=== PATIENT | female | born 1960 | race Caucasian/White ===

== ENCOUNTER 2019-04-03 14:54 | Emergency (ER) | payer OTHER, SELFPAY ==
[2019-04-03] VITALS (18 sets, daily range): BP systolic 108–153; BP diastolic 53–80; PULSE 77–92; RESP 15–28; TEMP 36.6–38.2; O2SAT 93–100
--- NOTE | ~2019-04-03 | CT_ITS ---
EXAMINATION: CT abdomen pelvis w con DATE: 04/03/2019 20:11 INDICATION: Right abdominal pain TECHNIQUE: Computed tomography (CT) of the abdomen and pelvis was performed without intravenous contr ast. The dose-length product was 1144.80 mGy-cm. Automated exposure control and iterative reconstruct ion technique were employed. COMPARISON: CT dated 08/08/2018 and MRI dated 05/13/2018 FINDINGS: There is mosaic attenuation in the lung parenchyma. Left lower lobe atelectasis. Heart size normal. There is atherosclerosis of the aorta and coronary arteries. No significant pleural or peric ardial effusion. Status post cholecystectomy with expected prominence of the bile ducts. The liver, spleen, left adren al gland or pancreatic calcifications suggesting chronic pancreatitis. There is a low dose mass in th e left kidney, most likely benign cysts. There is a punctate nonobstructing right renal stone. No hyd ronephrosis. There is a 4.3 x 2.5 cm right adrenal mass without significant interval change, previous ly characterized as adenoma by MRI. Nonobstructive bowel gas pattern. Small fat-containing umbilical hernia. There is irregular soft tiss ue overlying the right psoas muscle with coarse calcifications, possibly phleboliths or calcified lym ph nodes. No lymphadenopathy. No acute osseous abnormality. There is mild-moderate thoracic and lumba r spondylosis. There is a partially visualized intramedullary farhad in the left femur. IMPRESSION: 1. No acute abdominal abnormality. 2: Mosaic attenuation in the visualized lung parenchyma which may relate to respiratory bronchioliti s, small airway disease, edema or infection. 3: Stable 4.3 cm right adrenal adenoma. 4: Status post cholecystectomy with expected prominence of the bile ducts. Reviewed, dictated and finalized at location A. ER FITTER HELPER IMPRESSION: 1. No acute abdominal abnormality. 2: Mosaic attenuation in the visualized lung parenchyma which may relate to re spiratory bronchiolitis, small airway disease, edema or infection. 3: Stable 4.3 cm right adrenal adenoma. 4: Status post cholecystectomy with expected prominence of the bile ducts.
--- NOTE | ~2019-04-03 | XR_ITS ---
EXAMINATION: XR chest 2V DATE: 04/03/2019 15:38 INDICATION: Chest pain. TECHNIQUE: Frontal and lateral views of the chest were obtained. COMPARISON: Chest 2 views 10/28/2018, chest CT 10/28/2018 FINDINGS: There is mild atelectasis in the lower lung zones. No pleural effusion or pneumothorax. Car diomegaly is noted. There are multiple old healed bilateral rib fractures. There are bilateral should er arthroplasties. IMPRESSION: 1. Mild atelectasis in the lower lung zones. 2. Cardiomegaly. Reviewed, dictated and finalized at location A. SSED OR IMPRESSED LETTERING PAINTER
--- NOTE | ~2019-04-03 | XR_ITS ---
XR ankle RT min 3V 04/03/2019 18:21 INDICATION: Right ankle pain after injury PROCEDURE: 4 views right ankle COMPARISON: No prior studies for comparison. FINDINGS: Fracture, dislocation or subluxation is not identified. There is a degenerative calcaneal e nthesophyte. There are mild degenerative changes of the midfoot. The soft tissues appear within janie l limits. No foreign bodies are identified. IMPRESSION: 1: NO ACUTE BONE OR JOINT ABNORMALITY IDENTIFIED. Reviewed, dictated and finalized at location A. HARDENER
--- NOTE | 2019-04-03 14:55 | ECG_ITS ---
Measurements Intervals [place] Rate: 87 P: 35 W[place]: 175 QRS: -33 QRSD: 89 T: 32 QT: 353 QTc: 426 Interpretive Statements SINUS RHYTHM LEFT AXIS DEVIATION BORDERLINE R WAVE PROGRESSION, ANTERIOR LEADS BASELINE ARTIFACT- I, II, AVR BORDERLINE ECG Electronically Signed On 04-03-2019 16:19:39 POOL LIFEGUARD by Oswaldo Fields D.O.
[2019-04-03 15:14] LABS: Basophils Absolute Auto 0.1 K/mm3 (0.0-0.1); Basophils Percent Auto 0.5 % (0.2-1.2); Eosinophils Absolute Auto 0.1 K/mm3 (0-0.3); Eosinophils Percent Auto 0.9 % (0-4.4); Hematocrit 29.4 % (37.0-47.0); Hemoglobin 8.4 g/dL (12.0-15.0); Immature Granulocyte Absolute 0.09 K/mm3 (0.00-0.031); Immature Granulocyte Percent A 0.9 % (0-0.5); Lymphocytes Percent Auto 14.2 % (18.3-44.2); Mean Corpuscular HGB Conc 28.6 g/dl (32-36); Mean Corpuscular Hemoglobin 23.8 pg (26-34); Mean Corpuscular Volume 83.3 fl (80-100); Mean Platelet Volume 10.1 fl (7.4-10.4); Monocytes Absolute Auto 0.6 K/mm3 (0.1-0.6); Monocytes Percent Auto 6.1 % (2.6-8.5); Neutrophils Absolute Auto 7.6 K/mm3 (1.3-6.7); Neutrophils Percent Auto 77.4 % (45.5-73.1); Platelet Count Result 393 k/mm3 (150-375); Red Blood Count 3.53 M/mm3 (4.2-5.4); White Blood Count 9.9 K/mm3 (4.5-10.0)
[2019-04-03 15:23] LABS: Platelet Estimate Increased (Adequate)
[2019-04-03 15:24] LABS: Hypochromasia 2+ (NORMAL); INR 0.9; Ovalocytes 1+ (NORMAL); Partial Thromboplastin Time 31.7 SECONDS (22.3-36.8); Prothrombin Time 12.3 Seconds (11.1-14.7); Stomatocytes 1+ (NORMAL)
[2019-04-03 15:26] LABS: Blood Urea Nitrogen 24 mg/dL (7-17); Calcium 9.5 mg/dL (8.4-10.2); Carbon Dioxide 31 mmol/L (22-30); Chloride 100 mmol/L (98-107); Estimated CRCL calculation 74 ml/min; Estimated Glomerular Filt Rate > 60; Glucose 95 mg/dL (65-105); Potassium 4.4 mmol/L (3.4-5.0); Sodium 137 mmol/L (137-145)
[2019-04-03 15:38] LABS: Troponin I < 0.012 ng/mL (0.000-0.034)
--- NOTE | 2019-04-03 16:31 | ED.CHESTPAIN ---
HPI - Chest Pain General Chief Complaint: Chest Pain <Sushil Oconnell MD - Last Filed: 04/03/19 19:21> Stated Complaint: CP <Sushil Oconnell MD - Last Filed: 04/03/19 19:21> Time Seen by Provider: 04/03/19 16:28 <Sushil Oconnell MD - Last Filed: 04/03/19 19:21> Source: patient and RN notes reviewed <Sushil Oconnell MD - Last Filed: 04/03/19 19:21> Mode of arrival: ambulatory <Sushil Oconnell MD - Last Filed: 04/03/19 19:21> Limitations: no limitations <Sushil Oconnell MD - Last Filed: 04/03/19 19:21> History of Present Illness HPI narrative: Pt is a 59 y/o female with a Hx of A-Fib and CHF, who presents to the ED with c/o lt sided chest pain starting yesterday. She notes that she has recently been evaluated for rectal bleeding, stating that she has been diagnosed with anemia and has been scheduled for an endoscopy. Pt also notes that she has recently had bilateral flank pain and hematuria. She states that she developed pain in the lt side of her chest yesterday. Pt notes that her pain may be a result of her constantly upsetting her. She states that she fell yesterday, and notes that she has had pain in her rt ankle ever since. Pt also currently reports generalized weakness. She notes that she is currently trying to quit smoking. <Sushil Oconnell MD - Last Filed: 04/03/19 19:21> MD complaint: chest pain <Sushil Oconnell MD - Last Filed: 04/03/19 19:21> Onset (ago): day(s) (1) <Sushil Oconnell MD - Last Filed: 04/03/19 19:21> Pain location: left chest <Sushil Oconnell MD - Last Filed: 04/03/19 19:21> Pain radiation: none <Sushil Oconnell MD - Last Filed: 04/03/19 19:21> Associated symptoms: other (generalized weakness; hematuria; rectal bleeding; bilateral flank pain; rt ankle pain) <Sushil Oconnell MD - Last Filed: 04/03/19 19:21> Related Data Home Medications: Home Medications Medication Instructions Recorded Confirmed albuterol sulfate 2.5 mg/0.5 mL 2.5 mg INHALATION Q20M 02/13/19 solution for nebulization alendronate 70 mg tablet 70 mg PO WEEKLY 02/13/19 allopurinol 100 mg tablet 100 mg PO DAILY 02/13/19 alprazolam 0.5 mg tablet 1 mg PO DAILY tablet 02/13/19 amiodarone 200 mg tablet 200 mg PO BID tablet 02/13/19 apixaban 5 mg tablet 5 mg PO BID 02/13/19 atorvastatin 20 mg tablet 20 mg PO DAILY 02/13/19 budesonide-formoterol HFA 160 2 puff INHALATION Q12H 02/13/19 mcg-4.5 mcg/actuation aerosol inhaler bupropion HCl 200 mg tablet,12 hr 200 mg PO BID 02/13/19 sustained-release dicyclomine 10 mg capsule 10 mg PO TID 02/13/19 diltiazem HCl 120 mg 120 mg PO DAILY cap 02/13/19 capsule,extended release 12 hr ferrous sulfate 324 mg (65 mg 324 mg PO DAILY 02/13/19 iron) tablet,delayed release furosemide 20 mg tablet 20 mg PO QAM 02/13/19 levothyroxine 112 mcg tablet 112 mcg PO DAILY 02/13/19 magnesium oxide 400 mg PO DAILY 02/13/19 montelukast 10 mg tablet 10 mg PO DAILY 02/13/19 multivitamin 1 cap PO DAILY 02/13/19 omeprazole 40 mg capsule,delayed 40 mg PO DAILY 02/13/19 release paroxetine HCl 30 mg tablet 30 mg PO DAILY 02/13/19 potassium chloride 20 mEq 20 meq PO DAILY 02/13/19 tablet,extended release pregabalin 50 mg capsule 50 mg PO BID 02/13/19 spironolactone 25 mg tablet 25 mg PO DAILY 02/13/19 tiotropium bromide 18 mcg capsule 1 cap INHALATION DAILY 02/13/19 with inhalation device umeclidinium 62.5 mcg/actuation 1 inhalation INHALATION DAILY 02/13/19 blister powder for inhalation valacyclovir 1 gram tablet 1,000 mg PO DAILY 02/13/19 <Sushil Oconnell MD - Last Filed: 04/03/19 19:21> Allergies/Adverse Reactions: Allergies Allergy/AdvReac Type Severity Reaction Status Date / Time codeine Allergy Unknown Verified 03/27/19 10:44 Penicillins Allergy Unknown Verified 03/27/19 10:44 Sulfa (Sulfonamide Allergy Unknown Verified 03/27/19 10:44 Antibiotics) Sulfonamides Allergy Intermediate
[2019-04-03] MEDS: KETOROLAC 30 MG/ML VIAL (*BKC) IV PUSH (17:04)
[2019-04-03 18:14] LABS: Troponin I < 0.012 ng/mL (0.000-0.034)
[2019-04-03] MEDS: MORPHINE SULFATE 4 MG/ML INJ IV PUSH (18:20)
[2019-04-03] MEDS: ONDANSETRON INJ 4 MG/2 ML VIAL IV PUSH (18:20)
--- NOTE | 2019-04-03 19:42 | PC.NURSE ---
Patient called this nurse to her room stated she does not want to wait anymore for the CT scan. This nurse informed patient that a critical patient arrived and needed to go first but they will be in to take her to CT as soon as they can. Patient states she just wants to go home, Patient states I don't want to wait anymore. EDP aware.
--- NOTE | 2019-04-03 20:03 | PC.NURSE ---
Patient taken to radiology.
[2019-04-03 21:33] LABS: Add Urine Microscopic? YES; Appearance Urine Clear (Clear); Bilirubin Urine Negative (Negative); Blood Urine 1+ (Negative); Color Urine Yellow (Yellow); Glucose Urine UA Negative (Negative); Ketones Urine Negative (Negative); Leukocyte Esterase Ur Negative LEU/UL (Negative); Mucus Urine Rare /lpf; Nitrate Urine Negative (Negative); Protein Urine 1+ mg/dL (Negative); Specific Grav Ur 1.016 (1.001-1.035); Squamous Epithelial Cell Urine Occasional /hpf (Few); Urobilinogen Urine Negative mg/dL (<2.0); WBC Urine 0-3 /hpf
[2019-04-03 21:53] LABS: Troponin I < 0.012 ng/mL (0.000-0.034)
[2019-04-03] MEDS: MORPHINE SULFATE 2 MG/ML INJ IV PUSH (21:54)
== END 2019-04-03 23:01 | disposition home or self-care (01) ==
PROVIDERS: Physician Assistant Surgical; Emergency Provider Emergency Medicine
DX: B34.9 Viral infection, unspecified (principal); D50.9 Iron deficiency anemia, unspecified; S93.401A Sprain of unspecified ligament of right ankle, initial encounter; W19.XXXA Unspecified fall, initial encounter; M54.9 Dorsalgia, unspecified; R94.31 Abnormal electrocardiogram [ECG] [EKG]; I50.9 Heart failure, unspecified; J44.9 Chronic obstructive pulmonary disease, unspecified; E78.5 Hyperlipidemia, unspecified; I11.0 Hypertensive heart disease with heart failure; M10.9 Gout, unspecified; E03.9 Hypothyroidism, unspecified; G47.33 Obstructive sleep apnea (adult) (pediatric); I48.0 Paroxysmal atrial fibrillation; Z87.11 Personal history of peptic ulcer disease; Z96.653 Presence of artificial knee joint, bilateral
CPT/HCPCS: 36415; 71046; 73610; 74177; 80048; 81001; 84484; 85025; 85610; 85730; 87804; 93005; 96374; 96375; 96376; 99284; J1885; J2270; J2405; J3360; Q9967

== ENCOUNTER 2019-08-11 08:39 | Outpatient (CLI) | payer OTHER, SELFPAY ==
--- NOTE | ~2019-08-11 | CT_ITS ---
EXAMINATION: CT chest high resolution [facility] EXAM DATE: 08/11/2019 09:08 INDICATION: Chronic obstructive pulmonary disease. TECHNIQUE: Spiral CT of the chest without contrast. HRCT. Axial, coronal and sagittal images were re viewed. Coronal maximum intensity pixel images of chest reviewed. The dose-length product (DLP) for this examination was 333.33 mGy-cm. The exposure was tailored according to patient size (auto mA ex posure control), and iterative reconstruction (ASIR) was used as additional dose reduction technique. Comparison is made to prior examination from 10/28/2018. FINDINGS: Multiple bilateral upper lobe predominant reticulonodular opacities, with progression comp ared to previous examination. Most likely chronic infectious or postinfectious process. There is also scattered mosaic attenuation more pronounced than on previous examination. This is susp ected to be most likely air trapping given the scattered small regions of endobronchial debris identi fied. Differential diagnosis for this includes air trapping (asthma, bronchiolitis obliterans), vasc ulitis, or chronic groundglass opacity from hypersensitivity pneumonitis, nonspecific interstitial pn eumonitis (NSIP), cryptogenic organized pneumonia, or desquamative interstitial pneumonitis(DIP). There are no pleural or pericardial effusions. There is no mediastinal, hilar or axillary lymphaden opathy. There is no pneumothorax. Heart normal in size. There is mild coronary arterial calcifi cation, arterial sclerosis. The main, central pulmonary arteries are dilated which can indicate [place] pulmonary arterial pressure, pulmonary arterial hypertension. Liver is hyperdense, could be, could be amiodarone related finding, hemochromatosis, hemosiderosis. C linical correlation. Multiple old rib fractures bilaterally. There has been interval progression in the reticulonodular opacities and mosaic attenuation compared to previous exam. There is 3.2 cm right adrenal gland lesion likely adenoma. IMPRESSION: 1. Scattered tree-in-bud distribution upper lobe predominant reticular nodular opacities, most often seen with endobronchial spread of chronic infectious process or maybe postinfectious. 2. Scattered mosaic attenuation, could be air trapping given scattered subsegmental endobronchial de bris. 3. Pulmonary arterial hypertension. 4. Mildly hyperdense liver, could be deposition disease or amiodarone treatment. Reviewed, dictated and finalized at location A. IMPRESSION: 1. Scattered tree-in-bud distribution upper lobe predominant reticular nodular opacities, most often seen with endobronchial spread of chronic infectious pro cess or maybe postinfectious. 2. Scattered mosaic attenuation, could be air trapping given scattered subsegm ental endobronchial debris. 3. Pulmonary arterial hypertension. 4. Mildly hyperdense liver, could be deposition disease or amiodarone treatmen t.
== END 2019-08-11 08:40 | disposition home or self-care (01) ==
PROVIDERS: PCP Nurse Practitioner Psychiatric/Mental Health; Visit Provider Internal Medicine Critical Care Medicine
DX: J44.9 Chronic obstructive pulmonary disease, unspecified (principal); R91.8 Other nonspecific abnormal finding of lung field; I27.21 Secondary pulmonary arterial hypertension; R93.2 Abnormal findings on diagnostic imaging of liver and biliary tract
CPT/HCPCS: 71250

== ENCOUNTER 2020-02-17 14:16 | Outpatient (CLI) | payer OTHER, SELFPAY ==
--- NOTE | ~2020-02-17 | CT_ITS ---
EXAMINATION: CT chest wo con DATE: 02/17/2020 14:42 INDICATION: SOB, COUGH R06.02 Shortness of breath TECHNIQUE: Computed tomography (CT) of the chest was performed without intravenous contrast. Addition al 3D reconstructions utilizing coronal maximum intensity projection (MIP) were performed. Automated exposure control and iterative reconstruction technique were employed. The dose-length product was 55 6.52 mGy-cm. COMPARISON: 08/11/2019 FINDINGS: Identical pattern of mosaic attenuation in both lungs most prominent at the lung bases. No interval c hange in several 5 mm smaller pulmonary nodules in the bilateral upper lobes. No pulmonary edema, ple ural effusion or pneumothorax. Cardiomegaly. Atherosclerotic coronary artery calcific locations. No p ericardial or pleural effusion. Thoracic aorta is normal in caliber. Enlargement of the central pulmo nary arteries consistent with pulmonary arterial hypertension. No pathologically enlarged thoracic ly mphadenopathy. Gallbladder is not visualized and likely surgically absent. Bilateral total shoulder a rthroplasties. Relatively recent T2 compression fracture with sclerosis underlying the mildly depress ed superior endplate. Severe degenerative disc disease at T9-T10. IMPRESSION: 1. No interval change in several small pulmonary nodules in the bilateral upper lobes which are most likely related to chronic infection. 2. Unchanged pattern of mosaic attenuation with lower lung predominance. Differential would include s mall airway disease which be consistent with patient's provided history of COPD, pulmonary arterial h ypertension which be suggested by the enlargement of the central pulmonary arteries, desquamative int erstitial pneumonia (DIP) pattern chronic interstitial lung disease with associated respiratory bronc hitis interstitial lung disease which might also explain the previous noted pulmonary nodules. Chroni c hypersensitivity pneumonitis could also appear similarly to be less likely given patient's history of smoking. 3. Cardiomegaly. Reviewed, dictated and finalized at location B. SSIONS CONSULTANT IMPRESSION: 1. No interval change in several small pulmonary nodules in the bilateral upper lobes which are most likely related to chronic infection. 2. Unchanged pattern of mosaic attenuation with lower lung predominance. Differ ential would include small airway disease which be consistent with patient's pr ovided history of COPD, pulmonary arterial hypertension which be suggested by t he enlargement of the central pulmonary arteries, desquamative interstitial pne umonia (DIP) pattern chronic interstitial lung disease with associated respirat ory bronchitis interstitial lung disease which might also explain the previous noted pulmonary nodules. Chronic hypersensitivity pneumonitis could also appear similarly to be less likely given patient's history of smoking. 3. Cardiomegaly.
== END 2020-02-17 14:17 | disposition home or self-care (01) ==
PROVIDERS: PCP Nurse Practitioner Psychiatric/Mental Health; Visit Provider Nurse Practitioner Family
DX: R06.02 Shortness of breath (principal); R05 Cough; R93.89 Abnormal findings on diagnostic imaging of other specified body structures; I51.7 Cardiomegaly; Z87.891 Personal history of nicotine dependence
CPT/HCPCS: 71250

== ENCOUNTER 2022-04-12 07:15 | Outpatient (CLI) | payer OTHER, SELFPAY ==
--- NOTE | ~2022-04-12 | NM_ITS ---
EXAMINATION: NM shirlene stress w perfusion DATE: 04/12/2022 10:16 INDICATION: Chest pain, unspecified. TECHNIQUE: Rest images were obtained following intravenous administration of 10.3 mCi Tc99m tetrofosm in (Myoview). The patient was infused intravenously with Lexiscan (regadenoson). Then, 33.6 mCi Tc99m tetrofosmin (Myoview) was administered intravenously, and stress images were obtained. Data was nila nstructed into short axis and horizontal and vertical long axis SPECT images. Gated SPECT images were also obtained. COMPARISON: Myocardial perfusion imaging 09/13/2018, chest CT 02/17/2020 FINDINGS: There is no definite reversible or fixed perfusion abnormality to suggest ischemia or infar ction. There is no segmental wall motion abnormality. Left ventricular ejection fraction measures > 70%. IMPRESSION: 1. No definite ischemia or infarct. 2. Normal left ventricular ejection fraction measuring > 70%. Reviewed, dictated and finalized at location A. E DIMENSIONAL ART INSTRUCTOR
--- NOTE | 2022-04-12 07:26 | ECHO_ITS ---
Patient Info Name: Tracy Serna Age: 62 years : 1960 Gender: Female Ht: 66 in Wt: 175 lbs BSA: 1.94 m2 HR: 79 bpm BP: 143 / 82 mmHg Technical Quality: Good Exam Date: 04/12/2022 7:55 AM Exam Location: [facility] Pulmonary Patient Status: Outpatient Admit Date: 04/12/2022 Staff Ordering Physician: Oswaldo Fields DO Account Services Manager: Willard Rascon RDCS, RT Attending Provider: Oswaldo Fields DO Referring Physician: Donnie QUIROGA; Exam Type: CA echo doppler color flow Study Info Indications R60.0 - Localized edema Complete two-dimensional, color flow and Doppler transthoracic echocardiogram is performed. Strain analysis performed. Summary 1. Complete two-dimensional, color flow and Doppler transthoracic echocardiogram is performed. 2. Left ventricular chamber dimension is normal. 3. Left ventricular systolic function is normal, estimated at 60-65%. 4. There is moderate concentric increased left ventricular wall thickness. 5. The left ventricular diastolic function is grade I diastolic dysfunction. 6. E/e' 13 is mildly elevated. 7. Global longitudinal strain is mildly abnormal at -16.5%. 8. The mitral valve has moderately calcified annulus. 9. Dilated inferior vena cava with >50% collapse upon inspiration consistent with elevated right atrial pressure, 10 mmHg. Left Ventricle E/e' 13 is mildly elevated. Global longitudinal strain is mildly abnormal at -16.5%. Left ventricular chamber dimension is normal. Left ventricular systolic function is normal, estimated at 60-65%. There is moderate concentric increased left ventricular wall thickness. The left ventricular diastolic function is grade I diastolic dysfunction. Right Ventricle Right ventricular systolic function is normal and with normal TAPSE 2.1 cm. Right ventricular chamber dimension is normal. Left Atria Left atrial chamber dimension is normal. Right Atria Right atrial chamber dimension is normal. Aortic Valve The aortic valve is trileaflet. There is no aortic valve stenosis. There is no aortic valve regurgitation. Pulmonic Valve There is no pulmonic regurgitation. Mitral Valve The mitral valve has moderately calcified annulus. There is no mitral valve stenosis. There is no mitral valve regurgitation. Tricuspid Valve There is no tricuspid valve regurgitation. Pericardium/Pleural There is no pericardial effusion. Inferior Vena Cava Dilated inferior vena cava with >50% collapse upon inspiration consistent with elevated right atrial pressure, 10 mmHg. Aorta The aortic root size at the sinus of Valsalva is normal. Left Ventricular Outflow Tract Name Value Normal LVOT 2D LVOT Diameter 2.0 cm LVOT Doppler LVOT Peak Gradient 4 mmHg LVOT Mean Gradient 3 mmHg LVOT VTI 24 cm LVOT VTI/AV VTI Ratio 0.8 LVOT Stroke Volume 74 ml LVOT CO 5.0 l/min LVOT CI 2.6 l/min/m2 Mitral Valve
--- NOTE | 2022-04-12 07:28 | EST_ITS ---
Patient Info Name: Tracy Serna Age: 62 years : 1960 Gender: Female Ht: 66 in Wt: 175 lbs BSA: 1.94 m2 HR: 72 bpm BP: 146 / 72 mmHg Heart Rhythm: Sinus Rhythm Exam Date: 04/12/2022 9:21 AM Exam Location: [facility] Stress Patient Status: Outpatient Admit Date: 04/12/2022 Staff Ordering Physician: Oswaldo Fields DO Attending Provider: Oswaldo Fields DO Exercise Technologist: Catirna Donovan CT Exercise Physician: Oswaldo Fields DO Exam Type: CA stress shirlene w NM Study Info Indications R07.9 - Chest pain, unspecified R60.0 - Localized edema A regadenoson stress test was performed. Summary 1. 1. Negative lexiscan stress test for ischemic ST changes by ECG criteria. 2. 2. Stable hemodynamics throughout the test. 3. 3. Nuclear scan to follow and will be reported separately. Please correlate with it. 4. 4. Patient informed of the above results. Protocol: Lexiscan Stress ECG Details Stage: REST Duration (min): 1 min : 0 sec HR (bpm): 70 SBP (mmHg): 146 DBP (mmHg): 72 Stage: REST Duration (min): 7 min : 46 sec HR (bpm): 75 SBP (mmHg): 146 DBP (mmHg): 72 Stage: STAGE 1 Duration (min): 0 min : 59 sec HR (bpm): 82 SBP (mmHg): 138 DBP (mmHg): 72 Stage: RECOVERY Duration (min): 1 min : 0 sec HR (bpm): 84 SBP (mmHg): 138 DBP (mmHg): 72 Stage: RECOVERY Duration (min): 2 min : 0 sec HR (bpm): 82 SBP (mmHg): 138 DBP (mmHg): 72 Stage: RECOVERY Duration (min): 3 min : 0 sec HR (bpm): 85 SBP (mmHg): 111 DBP (mmHg): 70 Stage: RECOVERY Duration (min): 3 min : 20 sec HR (bpm): 82 SBP (mmHg): 111 DBP (mmHg): 70 Rest HR: 75 bpm Peak HR: 85 bpm Rest Sys BP: 146 mmHg Peak Sys BP: 138 mmHg Max Pred HR: 157 bpm % Max Pred HR: 54 % Target HR: 133 bpm Max RPP: 11,730 bpm*mmHg Termination Reason: Completed protocol Cardiac Symptoms: Shortness of breath Total Time: 1 min : 0 sec Rest Aaron BP: 72 mmHg Peak Aaron BP: 72 mmHg Total Dose: 0.4 mg Resting ECG Sinus rhythm. Stress ECG No ST changes. Arrhythmias None. Report Signatures
== END 2022-04-12 07:16 | disposition home or self-care (01) ==
PROVIDERS: Visit Provider Internal Medicine Cardiovascular Disease
DX: R07.9 Chest pain, unspecified (principal); R60.0 Localized edema; R94.31 Abnormal electrocardiogram [ECG] [EKG]
CPT/HCPCS: 78452; 93017; 93306; A9502; J2785

== ENCOUNTER 2022-07-31 17:18 | Emergency (ER) | payer OTHER, SELFPAY ==
--- NOTE | ~2022-07-31 | XR_ITS ---
EXAMINATION: XR hip LT 2V w AP pelvis, XR knee LT 3V DATE: 07/31/2022 18:15 INDICATION: Left hip and knee pain following palpable pop TECHNIQUE: 1. Anteroposterior view of the pelvis and anteroposterior and cross-table lateral views of the left h ip were obtained. 2. Anteroposterior, lateral and oblique views of the left knee were obtained. COMPARISON: CT abdomen pelvis dated 04/03/2019 FINDINGS: Left hip and pelvis: Alignment is normal. No fracture or suspected avascular necrosis. Small lucencies at the subtrochante laura left femur related to old screw tract from a since removed retrograde intramedullary farhad fixation as seen on the prior CT. Mild bilateral hip and sacroiliac osteoarthritis. Left: Old healed fracture deformity at the distal left femoral diaphysis with retrograde intramedullary farhad and surrounding cement fixation. The farhad is significantly smaller in diameter than the right previou sly seen on the prior CT imaging. Chronic osteolysis at the distal femur and proximal tibia with plac ement of likely antibiotic impregnated methylmethacrylate reconstructions of the femoral condyles and tibial plateau likely for treatment of prior osteomyelitis. There is lucency between the methylmetha crylate in the underlying bone at both the femur and more prominently at the proximal tibia. No prior imaging available and this is of indeterminate chronicity. The tibial methylmethacrylate appears til [place] anteriorly suggesting this is likely loose. There is posterior subluxation of the tibia with resp ect to the femoral condyles. IMPRESSION: 1. Methylmethacrylate reconstruction of regions of osteolysis at the distal femoral condyles of the p roximal tibial plateau likely for treatment of prior septic arthritis and osteomyelitis. There is inc reased lucency at the bone cement interfaces most prominent at the tibia which is subluxed posteriorl y relative to the femur and with anterior tilting of the tibial cement suggesting a segment is likely loose. No prior imaging is available and this is of indeterminate chronicity. 2. Old healed distal femoral diaphyseal fracture deformity with revised internal fixation. Note acute fractures identified. 3. Mild osteoarthritis at the bilateral hips and sacroiliac joints. Reviewed, dictated and finalized at location A. IMPRESSION: 1. Methylmethacrylate reconstruction of regions of osteolysis at the distal fem oral condyles of the proximal tibial plateau likely for treatment of prior sept ic arthritis and osteomyelitis. There is increased lucency at the bone cement i nterfaces most prominent at the tibia which is subluxed posteriorly relative to the femur and with anterior tilting of the tibial cement suggesting a segment is likely loose. No prior imaging is available and this is of indeterminate chr onicity. 2. Old healed distal femoral diaphyseal fracture deformity with revised interna l fixation. Note acute fractures identified. 3. Mild osteoarthritis at the bilateral hips and sacroiliac joints.
[2022-07-31 17:23] VITALS: BP 108/71; PULSE 83; RESP 16; TEMP 36.9; O2SAT 100
--- NOTE | 2022-07-31 17:49 | ED.EXTPRO ---
HPI - Extremity Problem General Chief complaint: Extremity Problem,Nontraumatic <Rubi Delaney PA-C - Last Filed: 07/31/22 22:58> Stated complaint: left leg and hip pain-denies injury <Rubi Delaney PA-C - Last Filed: 07/31/22 22:58> Time Seen by Provider: 07/31/22 17:33 <Rubi Delaney PA-C - Last Filed: 07/31/22 22:58> History of Present Illness HPI Narrative: Patient is a 62-year-old female here for evaluation of left hip and knee pain x2 days. Patient states that she was standing when she suddenly felt a pop in her left hip, since then she has had a shooting pain originate from her left hip into her left knee. She states that she has had much difficulty walking due to the pain. She called an ambulance and went to [place] emergency department. She is unsure what was done there but she states that she still has had lots of pain. Has attempted her oxycodone without relief. No numbness or tingling in the groin, incontinence or retention of bowel or bladder. She has a history of a spacer in her left knee that was placed by an orthopedic surgeon in [place] (Dr. Sameer Pinto)and is going to follow up next week to discuss surgical options for replacement. <Rubi Delaney PA-C - Last Filed: 07/31/22 22:58> Related Data Home medications: Home Medications Medication Instructions Recorded Confirmed albuterol sulfate 2.5 mg/0.5 mL 2.5 mg inhalation Q20M 02/13/19 02/21/22 solution for nebulization allopurinol 100 mg tablet 100 mg PO DAILY 02/13/19 02/21/22 atorvastatin 20 mg tablet 20 mg PO DAILY 02/13/19 02/21/22 dicyclomine 10 mg capsule 10 mg PO TID 02/13/19 02/21/22 levothyroxine 112 mcg tablet 112 mcg PO DAILY 02/13/19 02/21/22 montelukast 10 mg tablet 10 mg PO DAILY 02/13/19 02/21/22 multivitamin 1 cap PO DAILY 02/13/19 02/21/22 omeprazole 40 mg capsule,delayed 40 mg PO DAILY 02/13/19 02/21/22 release paroxetine HCl 30 mg tablet 30 mg PO DAILY 02/13/19 02/21/22 valacyclovir 1 gram tablet 1,000 mg PO DAILY 02/13/19 02/21/22 (Valtrex) ferrous sulfate 324 mg (65 mg 324 mg PO BID 08/05/19 02/21/22 iron) tablet,delayed release <Rubi Delaney PA-C - Last Filed: 07/31/22 22:58> Allergies/Adverse reactions: Allergies Allergy/AdvReac Type Severity Reaction Status Date / Time codeine Allergy Unknown Unknown Verified 07/31/22 17:34 Penicillins Allergy Unknown Unknown Verified 07/31/22 17:34 Sulfa (Sulfonamide Allergy Unknown Unknown Verified 07/31/22 17:34 Antibiotics) Sulfonamides Allergy Intermediate unknown Uncoded 07/31/22 17:34 <Rubi Delaney PA-C - Last Filed: 07/31/22 22:58> Review of Systems Review of Systems: Gen.: Denies fevers or chills Eyes: Denies eye pain or visual change ENT: Denies congestion Respiratory: Denies shortness of breath or cough CV: Denies chest pain or palpitations GI: Denies abdominal pain nausea, emesis or diarrhea : denies burning, urgency, frequency or hematuria Musculoskeletal: Reports leg pain Neuro: Denies numbness, tingling, weakness or focal weakness Skin: Denies rash Except as documented, all other systems reviewed and negative <Rubi Delaney PA-C - Last Filed: 07/31/22 22:58> [facility] Past Medical History Medical History: Medical History Abnormal CT of the chest Anemia Anxiety Asthma Atrial fibrillation with rapid ventricular response Back pain Chest pain in adult CHF (congestive heart failure) Chronic obstructive pulmonary disease, unspecified Depression Diastolic dysfunction Dyslipidemia Edema of both legs Essential hypertension GI bleed Gout Hypothyroidism Hypoxemia Left rotator cuff tear Obstructive sleep apnea Orthostatic syncope PAF (paroxysmal atrial fibrillation) PUD (peptic ulcer disease) Shortness of breath <Rubi Delaney PA-C - Last Filed: 07/31/22 22:58> Surgical
[2022-07-31] MEDS: MORPHINE SULFATE (*CRX) 2 MG/ML INJ IV PUSH ×2 (17:53→18:54)
[2022-07-31 18:22] VITALS: BP 113/61; PULSE 60; RESP 15; O2SAT 98
[2022-07-31] MEDS: LORazepam (*CRX) 0.5 MG TABLET PO (19:27)
[2022-07-31] MEDS: fentaNYL CITRATE INJ (*CRX) 100 MCG/2 ML VIAL 50 MCG IV PUSH (20:06)
[2022-07-31 20:09] VITALS: BP 128/64; PULSE 76; RESP 16; O2SAT 98
--- NOTE | 2022-07-31 21:10 | PC.NURSE ---
RN called [facility]. Report given to scrap charger. EMS departed [id number].
[2022-07-31 21:11] VITALS: BP 124/64; PULSE 74; RESP 16; O2SAT 100
== END 2022-07-31 21:13 | disposition short-term general hospital (02) ==
PROVIDERS: Emergency Provider Physician Assistant
DX: M25.552 Pain in left hip (principal); M25.562 Pain in left knee; I48.0 Paroxysmal atrial fibrillation; I50.9 Heart failure, unspecified; I11.0 Hypertensive heart disease with heart failure; J44.9 Chronic obstructive pulmonary disease, unspecified; E78.5 Hyperlipidemia, unspecified; E03.9 Hypothyroidism, unspecified; G47.33 Obstructive sleep apnea (adult) (pediatric); M10.9 Gout, unspecified; Z87.11 Personal history of peptic ulcer disease; Z86.2 Personal history of diseases of the blood and blood-forming organs and certain disorders involving the immune mechanism; Z96.653 Presence of artificial knee joint, bilateral; Z90.49 Acquired absence of other specified parts of digestive tract; Z90.710 Acquired absence of both cervix and uterus; M16.0 Bilateral primary osteoarthritis of hip; M46.1 Sacroiliitis, not elsewhere classified
CPT/HCPCS: 73502; 73562; 96372; 96374; 96375; 96376; 99284; 99285; A9270; J1100; J2270; J3010

== ENCOUNTER 2022-08-09 16:53 | Observation (INO) | payer OTHER, SELFPAY ==
--- NOTE | ~2022-08-09 | XR_ITS ---
EXAMINATION: XR chest 1V portable INDICATION: Cough TECHNIQUE: Portable AP chest at 1929 hours COMPARISON: 04/03/2019 FINDINGS: Cardiomegaly is noted. There is mild atelectasis of the lung bases. No pleural effusion or pneumothorax. Bilateral shoulder arthroplasties are noted. There are healed bilateral rib fractures. There are partially imaged changes of interval fusion procedure in the lower cervical spine. IMPRESSION: 1. Mild atelectasis of the lung bases. Reviewed, dictated and finalized at location F.
--- NOTE | ~2022-08-09 | CT_ITS ---
EXAMINATION: CT hip LT wo con DATE: 08/09/2022 20:31 INDICATION: Left hip pain TECHNIQUE: Computed tomography (CT) of the left hip was performed without intravenous contrast. The d ose-length product (DLP) was 424.31 mGy-cm. Automated exposure control and iterative reconstruction t echnique were employed. COMPARISON: None FINDINGS: Bone alignment is normal. There is no fracture. There is mild osteoarthritis of the hip. Nida cency in the proximal femoral shaft is seen at the site of prior orthopedic hardware. Chronic heterot opic tendinous calcification is noted anteriorly. There is calcified atherosclerosis. IMPRESSION: 1. No CT correlate for the patient's symptoms. Reviewed, dictated and finalized at location F.
--- NOTE | ~2022-08-09 | XR_ITS ---
EXAMINATION: XR knee LT 3V DATE: 08/09/2022 18:44 INDICATION: Left knee pain TECHNIQUE: Three views of the right knee were obtained. COMPARISON: 07/31/2022 FINDINGS: Methylmethacrylate reconstruction of the distal femoral condyles and proximal tibial platea u is again noted. Alignment is unchanged with posterior subluxation of the tibia with respect to the distal femur no acute fracture is identified.. There is internal fixation of a healed distal femoral shaft fracture. IMPRESSION: 1. Finding is in the knee and distal femur as described above without significant interval change. Reviewed, dictated and finalized at location F. IMPRESSION: 1. Finding is in the knee and distal femur as described above without significa nt interval change.
--- NOTE | ~2022-08-09 | XR_ITS ---
EXAMINATION: XR hip LT 2V w AP pelvis INDICATION: Left hip pain TECHNIQUE: AP view of the pelvis and two views of the left hip are obtained. COMPARISON: 07/31/2022 FINDINGS: Bone alignment is normal. There is no fracture. There is mild osteoarthritis of the hips. L ucency in the proximal shaft of the left femur is seen at the site of prior orthopedic hardware. Phle boliths are noted in the pelvis. IMPRESSION: 1. No acute osseous abnormality. Reviewed, dictated and finalized at location F.
--- NOTE | ~2022-08-09 | XR_ITS ---
EXAMINATION: XR ankle RT min 3V INDICATION: Right ankle pain TECHNIQUE: Three views of the right ankle are obtained. COMPARISON: 04/03/2019 FINDINGS: Oh alignment is normal. There is no fracture. There is soft tissue swelling of ankle. A laly ntar calcaneal enthesophyte is noted. There is mild osteoarthritis of the midfoot. IMPRESSION: 1. Soft tissue swelling without acute osseous abnormality. Reviewed, dictated and finalized at location F.
[2022-08-09 17:02] VITALS: BP 112/45; PULSE 70; RESP 18; TEMP 37.3; O2SAT 100
--- NOTE | 2022-08-09 17:52 | ED.GENADULT ---
HPI - General Adult General Chief complaint: Unspecified Stated complaint: R ankle injury/ L hip pain Time Seen by Provider: 08/09/22 17:04 History of Present Illness HPI narrative: 62-year-old female who is a very poor historian history of COPD, osteoporosis, hypothyroidism, status post knee spacer to the left knee 18 months ago presents to the emergency room for evaluation of left hip and right ankle pain. Patient was seen here in the emergency room 1 week ago for left hip and knee pain for 2 days. States that she was standing when she felt a pop in her left hip, causing pain to radiate into her left knee. Imaging at that time was found to have a displaced spacer in her left knee. Patient was transferred to [place] for further evaluation, and so her care could be managed by the orthopedist, Dr. Pinto. Patient states they were concerned over a possible septic hip, so they performed an arthrocentesis. Patient states there is no infection noted. Patient states she was sent home with Seroquel and gabapentin for pain. Patient states that she has been ambulating at home with a walker, and is now complaining of right ankle pain. Patient denies any new injury or trauma. Patient states that she lives in assisted living in [facility]. Related Data Home Medications Medication Instructions Recorded Confirmed albuterol sulfate 2.5 mg/0.5 mL 2.5 mg inhalation Q20M 02/13/19 02/21/22 solution for nebulization allopurinol 100 mg tablet 100 mg PO DAILY 02/13/19 02/21/22 atorvastatin 20 mg tablet 20 mg PO DAILY 02/13/19 02/21/22 dicyclomine 10 mg capsule 10 mg PO TID 02/13/19 02/21/22 levothyroxine 112 mcg tablet 112 mcg PO DAILY 02/13/19 02/21/22 montelukast 10 mg tablet 10 mg PO DAILY 02/13/19 02/21/22 multivitamin 1 cap PO DAILY 02/13/19 02/21/22 omeprazole 40 mg capsule,delayed 40 mg PO DAILY 02/13/19 02/21/22 release paroxetine HCl 30 mg tablet 30 mg PO DAILY 02/13/19 02/21/22 valacyclovir 1 gram tablet 1,000 mg PO DAILY 02/13/19 02/21/22 (Valtrex) ferrous sulfate 324 mg (65 mg 324 mg PO BID 08/05/19 02/21/22 iron) tablet,delayed release Allergies Allergy/AdvReac Type Severity Reaction Status Date / Time codeine Allergy Unknown Unknown Verified 08/09/22 17:29 Penicillins Allergy Unknown Unknown Verified 08/09/22 17:29 Sulfa (Sulfonamide Allergy Unknown Unknown Verified 08/09/22 17:29 Antibiotics) Sulfonamides Allergy Intermediate unknown Uncoded 07/31/22 17:34 Review of Systems Review of Systems: CONSTITUTIONAL: Denies fever, chills, or sweats. EYES: Denies visual changes, redness, or discharge. ENT: Denies rhinorrhea, congestion, sore throat, or otalgia. CARDIOVASCULAR: Denies chest pain, palpitations, or edema. RESPIRATORY: Denies cough or dyspnea. GASTROINTESTINAL: Denies abdominal pain, nausea, vomiting, or diarrhea. GENITOURINARY: Denies dysuria or hematuria. SKIN: Denies rash or itching. MUSCULOSKELETAL: Reports left hip, left knee, right ankle pain NEUROLOGIC: Denies headache, numbness, dizziness, or weakness. PSYCHIATRIC: Denies anxiety or depression. [facility] Past Medical History Medical History Abnormal CT of the chest Anemia Anxiety Asthma Atrial fibrillation with rapid ventricular response Back pain Chest pain in adult CHF (congestive heart failure) Chronic obstructive pulmonary disease, unspecified Depression Diastolic dysfunction Dyslipidemia Edema of both legs Essential hypertension GI bleed Gout Hypothyroidism Hypoxemia Left rotator cuff tear Obstructive sleep apnea Orthostatic syncope PAF (paroxysmal atrial fibrillation) PUD (peptic ulcer disease) Shortness of breath Surgical History Surgical History History of bilateral knee replacement Hx of appendectomy Hx of cholecystectomy Hx of hysterectomy Family History Family History (Reviewed 08/09/22 @ 18:02 by Elina
[2022-08-09] MEDS: fentaNYL CITRATE INJ (*CRX) 100 MCG/2 ML VIAL 50 MCG IV PUSH ×2 (18:09→20:09)
[2022-08-09 18:26] LABS: Basophils Absolute Auto 0.1 K/mm3 (0.0-0.1); Basophils Percent Auto 0.5 % (0.2-1.2); Eosinophils Absolute Auto 0.2 K/mm3 (0-0.3); Eosinophils Percent Auto 0.8 % (0-4.4); Hemoglobin 8.8 g/dL (12.0-15.0); Immature Granulocyte Absolute 0.24 K/mm3 (0.00-0.031); Immature Granulocyte Percent A 1.1 % (0-0.5); Lymphocytes Absolute Auto 1.03 K/mm3 (0.9-3.2); Lymphocytes Percent Auto 4.7 % (18.3-44.2); Mean Corpuscular HGB Conc 30.3 g/dl (32-36); Mean Corpuscular Hemoglobin 26.3 pg (26-34); Mean Corpuscular Volume 86.8 fl (80-100); Mean Platelet Volume 10.9 fl (7.4-10.4); Monocytes Absolute Auto 0.8 K/mm3 (0.1-0.6); Monocytes Percent Auto 3.6 % (2.6-8.5); Neutrophils Absolute Auto 19.4 K/mm3 (1.3-6.7); Neutrophils Percent Auto 89.3 % (45.5-73.1); Platelet Count Result 470 k/mm3 (150-375); Red Blood Count 3.34 M/mm3 (4.2-5.4); White Blood Count 21.7 K/mm3 (4.5-10.0)
[2022-08-09 18:33] LABS: Alanine Aminotransferase 15 U/L (6-35); Albumin Level 3.8 g/dL (3.5-5.1); Alkaline Phosphatase 99 U/L (38-126); Anion Gap 3 mmol/L (8-16); Aspartate Amino Transferase 25 U/L (14-36); Bilirubin,Total 0.5 mg/dL (0.2-1.3); Blood Urea Nitrogen 39 mg/dL (7-17); Carbon Dioxide 33 mmol/L (22-30); Chloride 98 mmol/L (98-107); Estimated CRCL calculation 40 ml/min; Estimated Glomerular Filt Rate 45; Glucose 92 mg/dL (65-110); Potassium 4.9 mmol/L (3.4-5.0); Sodium 134 mmol/L (137-145)
[2022-08-09 19:40] LABS: CRP 7.6 mg/dL (<1.0)
[2022-08-09] MEDS: SODIUM CHLORIDE 0.9% IV 1,000 ML 250 ML IV CONT (20:09)
--- NOTE | 2022-08-09 20:19 | ED.GENADULT ---
HPI - General Adult General Chief complaint: Unspecified Stated complaint: R ankle injury/ L hip pain Time Seen by Provider: 08/09/22 17:04 Related Data Home Medications Medication Instructions Recorded Confirmed albuterol sulfate 2.5 mg/0.5 mL 2.5 mg inhalation Q20M 02/13/19 02/21/22 solution for nebulization allopurinol 100 mg tablet 100 mg PO DAILY 02/13/19 02/21/22 atorvastatin 20 mg tablet 20 mg PO DAILY 02/13/19 02/21/22 dicyclomine 10 mg capsule 10 mg PO TID 02/13/19 02/21/22 levothyroxine 112 mcg tablet 112 mcg PO DAILY 02/13/19 02/21/22 montelukast 10 mg tablet 10 mg PO DAILY 02/13/19 02/21/22 multivitamin 1 cap PO DAILY 02/13/19 02/21/22 omeprazole 40 mg capsule,delayed 40 mg PO DAILY 02/13/19 02/21/22 release paroxetine HCl 30 mg tablet 30 mg PO DAILY 02/13/19 02/21/22 valacyclovir 1 gram tablet 1,000 mg PO DAILY 02/13/19 02/21/22 (Valtrex) ferrous sulfate 324 mg (65 mg 324 mg PO BID 08/05/19 02/21/22 iron) tablet,delayed release Allergies Allergy/AdvReac Type Severity Reaction Status Date / Time codeine Allergy Unknown Unknown Verified 08/09/22 17:29 Penicillins Allergy Unknown Unknown Verified 08/09/22 17:29 Sulfa (Sulfonamide Allergy Unknown Unknown Verified 08/09/22 17:29 Antibiotics) Sulfonamides Allergy Intermediate unknown Uncoded 07/31/22 17:34 [facility] Past Medical History Medical History Abnormal CT of the chest Anemia Anxiety Asthma Atrial fibrillation with rapid ventricular response Back pain Chest pain in adult CHF (congestive heart failure) Chronic obstructive pulmonary disease, unspecified Depression Diastolic dysfunction Dyslipidemia Edema of both legs Essential hypertension GI bleed Gout Hypothyroidism Hypoxemia Left rotator cuff tear Obstructive sleep apnea Orthostatic syncope PAF (paroxysmal atrial fibrillation) PUD (peptic ulcer disease) Shortness of breath Surgical History Surgical History History of bilateral knee replacement Hx of appendectomy Hx of cholecystectomy Hx of hysterectomy Family History Family History Mother Family history of cardiovascular disease, Onset Age: 37 Sister Family history of type 2 diabetes mellitus Mother Hypertension Social History Social History Smoking status: Current every day smoker Course Vital Signs Vital signs: Vital Signs Temperature 99.1 F 08/09/22 17:02 Pulse Rate 70 08/09/22 17:02 Respiratory Rate 18 08/09/22 17:02 Blood Pressure 112/45 L 08/09/22 17:02 Pulse Oximetry 100 08/09/22 17:02 Oxygen Delivery Room Air 08/09/22 17:02 Temperature 99.1 F 08/09/22 17:02 Pulse Rate 70 08/09/22 17:02 Respiratory Rate 18 08/09/22 17:02 Blood Pressure 112/45 L 08/09/22 17:02 Pulse Oximetry 100 08/09/22 17:02 Oxygen Delivery Room Air 08/09/22 17:02 Medical Decision Making Vital Signs Vital Signs: Vital Signs Temperature 99.1 F 08/09/22 17:02 Pulse Rate 70 08/09/22 17:02 Respiratory Rate 18 08/09/22 17:02 Blood Pressure 112/45 L 08/09/22 17:02 Pulse Oximetry 100 08/09/22 17:02 Oxygen Delivery Room Air 08/09/22 17:02 Temperature 99.1 F 08/09/22 17:02 Pulse Rate 70 08/09/22 17:02 Respiratory Rate 18 08/09/22 17:02 Blood Pressure 112/45 L 08/09/22 17:02 Pulse Oximetry 100 08/09/22 17:02 Oxygen Delivery Room Air 08/09/22 17:02 Lab Data 08/09/22 18:12 08/09/22 18:12 Labs: Lab Results 08/09/22 Range/Units 18:12 WBC 21.7 H (4.5-10.0) K/mm3 RBC 3.34 L (4.2-5.4) M/mm3 Hgb 8.8 L (12.0-15.0) g/dL Hct 29.0 L (37.0-47.0) % MCV 86.8 (80-100) fl MCH 26.3 (26-34) pg MCHC 30.3 L (32-36) g/dl RDW 19.0 H (11.5-14.5) % Plt Count 470
[2022-08-09 20:33] LABS: Lactic Acid Reflex 0.9 mmol/L (0.7-2.0)
[2022-08-09 20:42] VITALS: BP 108/72; PULSE 76; RESP 15; O2SAT 97
[2022-08-09 21:25] LABS: Erythrocyte Sedimentation Rate 114 mm/hr (0-20)
--- NOTE | 2022-08-09 21:32 | ADMGEN ---
This patient, Tracy Serna, was admitted to [facility] Surg Room 307-02. Patient/family oriented to hospital policies and general routines including ID bracelet, bed and alarms, visiting hours, pain management, procedures, bathroom and other care routines, personal items, smoking policy, room service/diet, and visiting hours. Information on how to activate the Rapid Response Team has been discussed. Patient/Family are encouraged to report perceived risks to care and to ask questions if they do not understand what they are told or what they should do.
[2022-08-09] MEDS: HYDROmorphone HCL INJ (*CRX) 1 MG/ML SYR 0.5 MG IV PUSH (21:36)
[2022-08-09] MEDS: rifAXIMin 550 MG TABLET PO (21:39)
[2022-08-09 21:51] VITALS: BMI 31.5
[2022-08-09 22:00] VITALS: BP 109/44; PULSE 80; RESP 16; TEMP 36.7; O2SAT 100
[2022-08-10] MEDS: HYDROmorphone HCL INJ (*CRX) 1 MG/ML SYR 0.5 MG IV PUSH ×3 (01:20→22:11)
[2022-08-10] MEDS: SODIUM CHLORIDE 0.9% IV 1,000 ML 85 ML IV CONT ×2 (01:20→15:21)
[2022-08-10] MEDS: ALPRAZolam (*CRX) 0.25 MG TABLET PO (02:21)
[2022-08-10] MEDS: LEVOTHYROXINE SODIUM 112 MCG TABLET PO (06:03)
[2022-08-10 07:35] VITALS: BP 113/51; PULSE 68; RESP 18; TEMP 36.6; O2SAT 98
[2022-08-10] MEDS: HYDROmorphone HCL INJ (*CRX) 1 MG/ML SYR IV PUSH ×2 (07:35→12:45)
[2022-08-10] MEDS: FLUTICASONE/SALMETEROL 115-21 MCG INHALER 1 PUFF 2 PUFF INHALATION ×2 (07:56→20:09)
[2022-08-10 07:59] VITALS: O2SAT 94
[2022-08-10] MEDS: allopurinoL 100 MG TABLET PO (08:50)
[2022-08-10] MEDS: MULTIVITAMINS THERAPEUTIC TAB (*BKC) 1 TABLET PO (08:50)
[2022-08-10 08:51] VITALS: PULSE 80
[2022-08-10] MEDS: PANTOPRAZOLE 40 MG TABLET PO ×2 (08:51→20:50)
[2022-08-10] MEDS: AMIODARONE HCL 100 MG TABLET BY MOUTH (08:51)
[2022-08-10] MEDS: valACYclovir HCL 500 MG TABLET 1000 MG PO (08:53)
[2022-08-10] MEDS: PARoxetine 10 MG TABLET 30 MG PO (08:55)
[2022-08-10] MEDS: ATORVASTATIN 20 MG TABLET PO (08:55)
[2022-08-10] MEDS: CIPROFLOXACIN 500 MG TAB PO ×2 (08:55→20:50)
[2022-08-10] MEDS: HYDROcodone/acetaminophen (*CRX) 5-325 MG TABLET 1 TAB PO ×2 (11:24→20:49)
[2022-08-10] MEDS: ALPRAZolam (*CRX) 0.5 MG TABLET PO ×3 (12:01→22:11)
[2022-08-10 14:00] VITALS: BP 121/65; PULSE 72; RESP 20; TEMP 36.7; O2SAT 97
[2022-08-10 14:22] LABS: Appearance Urine Clear (Clear); Bacteria Urine None Seen /hpf; Bilirubin Urine Negative (Negative); Blood Urine Negative (Negative); Color Urine Yellow (Yellow); Glucose Urine UA Negative (Negative); Ketones Urine Negative (Negative); Leukocyte Esterase Ur Negative LEU/UL (Negative); Nitrate Urine Negative (Negative); Non Pathogenic Casts 0-2; Protein Urine 1+ mg/dL (Negative); RBC Urine 0-2 /hpf (0-2); Specific Grav Ur 1.013 (1.001-1.035); Squamous Epithelial Cell Urine Occasional /hpf (Few); Urobilinogen Urine 0.2 mg/dL (<2.0); WBC Urine 0-5 /hpf
[2022-08-10 14:26] LABS: Add Urine Microscopic? YES
--- NOTE | 2022-08-10 15:55 | WPDPN ---
Progress Note: A&P Assessment and Plan (1) Acute pain of left hip: Code(s): M25.552 - Pain in left hip Status: Acute Assessment and Plan: ED-HPI narrative: 62-year-old female who is a very poor historian history of COPD, osteoporosis, hypothyroidism, status post knee spacer to the left knee 18 months ago presents to the emergency room for evaluation of left hip and right ankle pain.? Patient was seen here in the emergency room 1 week ago for left hip and knee pain for 2 days.? States that she was standing when she felt a pop in her left hip, causing pain to radiate into her left knee.? Imaging at that time was found to have a displaced spacer in her left knee.? Patient was transferred to [place] for further evaluation, and so her care could be managed by the orthopedist, Dr. Pinto.? Patient states they were concerned over a possible septic hip, so they performed an arthrocentesis.? Patient states there is no infection noted.? Patient states she was sent home with Seroquel and gabapentin for pain.? Patient states that she has been ambulating at home with a walker, and is now complaining of right ankle pain.? Patient denies any new injury or trauma.? Patient states that she lives in assisted living in [facility]. 08/10/2022 interval history: Patient with chronic hip pain concerning for septic joint patient was seen at the [facility] and there was no infection and discharged, now presents with complaint left hip pain ankle pain patient is seen by orthopedic suspect possible gout patient may need steroid injection, will continue to monitor and provide pain control and have PT OT evaluate the patient. (2) Leukocytosis: Code(s): D72.829 - Elevated white blood cell count, unspecified Status: Acute Assessment and Plan: Patient with a leukocytosis etiology uncertain no obvious source of infection patient is being treated Cipro and vancomycin will follow-up on the blood culture and monitor (3) Acute pain of left knee: Code(s): M25.562 - Pain in left knee Status: Acute Assessment and Plan: Patient seen by orthopedic surgeon and further recommendation to follow Subjective Date/time seen: 08/10/22 15:55 Interval history: ED-HPI narrative: 62-year-old female who is a very poor historian history of COPD, osteoporosis, hypothyroidism, status post knee spacer to the left knee 18 months ago presents to the emergency room for evaluation of left hip and right ankle pain.? Patient was seen here in the emergency room 1 week ago for left hip and knee pain for 2 days.? States that she was standing when she felt a pop in her left hip, causing pain to radiate into her left knee.? Imaging at that time was found to have a displaced spacer in her left knee.? Patient was transferred to [place] for further evaluation, and so her care could be managed by the orthopedist, Dr. Pinto.? Patient states they were concerned over a possible septic hip, so they performed an arthrocentesis.? Patient states there is no infection noted.? Patient states she was sent home with Seroquel and gabapentin for pain.? Patient states that she has been ambulating at home with a walker, and is now complaining of right ankle pain.? Patient denies any new injury or trauma.? Patient states that she lives in assisted living in [facility]. 08/10/2022 interval history: Patient with chronic hip pain concerning for septic joint patient was seen at the [facility] and there was no infection and discharged, now presents with complaint left hip pain ankle pain patient is seen by orthopedic suspect possible gout patient may need steroid injection, will continue to monitor and provide pain control and have PT OT evaluate the patient. Review of Systems Review of Systems: CONSTITUTIONAL: Denies fever, chills, or sweats. EYES: Denies visual changes, redness, or discharge. ENT: Denies rhinorrhea, congestion, sore throat, or otal
--- NOTE | 2022-08-10 17:05 | PM.CNOR ---
Assessment and Plan Assessment and plan (1) Chronic pain of right ankle: Code(s): M25.571 - Pain in right ankle and joints of right foot; G89.29 - Other chronic pain Status: Acute (2) Acute pain of left hip: Code(s): M25.552 - Pain in left hip Status: Acute (3) Acute pain of left knee: Code(s): M25.562 - Pain in left knee Status: Acute Plan Several lower extremity chronic issues. Left knee infection treated with an antibiotic spacer last year. She needs to have an total knee replacement. Subacute new left hip pain. Workup and evaluation completed at [facility] several weeks ago. Chronic right ankle pain and history of gout according to the patient. Additionally, she has pes planus and is undoubtedly putting more stress on the right ankle to protect the left knee and hip. I offered the patient an injection into the right ankle to help with inflammation and pain. Swelling and pain possibly related to gout. She needs to follow up as an outpatient with her orthopedic team at [facility] for her left hip and left knee. History of Present Illness HPI Consult date: 08/10/22 Chief complaint: Left Hip Pain Narrative: Complains of chronic left hip and left knee pain. Also right ankle pain. Has undergone an extensive workup at [facility] last month. Complex history with infected knee after retrograde nailing of the femur; treated with an antibiotic spacer in the knee. Recent hip aspiration was negative for infection. She has a history of gout. Review of Systems Review of Systems: All systems reviewed & are unremarkable except as noted in HPI and below PMFSH Past Medical History Medical History Abnormal CT of the chest Anemia Anxiety Asthma Atrial fibrillation with rapid ventricular response Back pain Chest pain in adult CHF (congestive heart failure) Chronic obstructive pulmonary disease, unspecified Depression Diastolic dysfunction Dyslipidemia Edema of both legs Essential hypertension GI bleed Gout Hypothyroidism Hypoxemia Left rotator cuff tear Obstructive sleep apnea Orthostatic syncope PAF (paroxysmal atrial fibrillation) PUD (peptic ulcer disease) Shortness of breath Surgical History Surgical History History of bilateral knee replacement Hx of appendectomy Hx of cholecystectomy Hx of hysterectomy Family History Family History Mother Family history of cardiovascular disease, Onset Age: 37 Sister Family history of type 2 diabetes mellitus Mother Hypertension Social History Social History Smoking status: Former smoker Tobacco type: cigarettes and e-cigarettes/vaping Alcohol intake: never Substance use: former Substance use type: marijuana Lack of Transportation: No Lack of Food: Never True Current Housing: I Have Housing Concerned About Future Housing: No Difficulty Paying Gas/Electric Bills: No Difficulty Paying for Meds: No Currently Unemployed: No Education: Grade School Difficulty w/ Childcare or Family Care: No Spiritual care concerns: No Meds Home Medications and Allergies Home Medications Medication Instructions Recorded Confirmed Type albuterol sulfate 2.5 mg/0.5 mL 2.5 mg inhalation Q20M 02/13/19 08/09/22 History solution for nebulization allopurinol 100 mg tablet 100 mg PO DAILY 02/13/19 08/09/22 History atorvastatin 20 mg tablet 20 mg PO DAILY 02/13/19 08/09/22 History dicyclomine 10 mg capsule 10 mg PO TID 02/13/19 08/09/22 History levothyroxine 112 mcg tablet 112 mcg PO DAILY 02/13/19 08/09/22 History montelukast 10 mg tablet 10 mg PO DAILY 02/13/19 08/09/22 History multivitamin 1 cap PO DAILY
[2022-08-10] MEDS: methylPREDNISolone ACETATE 80 MG/ML VIAL I-ARTICULR (17:18)
[2022-08-10] MEDS: ENOXAPARIN 40 MG/0.4 ML SYRINGE SUB-Q (17:24)
--- NOTE | 2022-08-10 17:25 | W.PM.PROC2 ---
Procedure Note - Detailed Date of Procedure 08/10/22 Pre-op Diagnosis Left ankle swelling. Post-op Diagnosis Same Procedure Performed Injection 80 mg Depo-Medrol into the right ankle. Surgeon Eugenio Garrison MD Anesthesia None Indications Right ankle swelling and pain. History of gout. Description of Procedure Injection 80 mg Depo-Medrol into the right ankle. Sterile prep and drape with chlorhexidine and alcohol. Patient tolerated the injection well. No complications. Urine Output 350 Complications No immediate complications [facility] Billing Surgery - Charge Forward: Surgery Billing
[2022-08-10] MEDS: SPIRONOLACTONE 25 MG TABLET BY MOUTH (17:31)
[2022-08-10] MEDS: MAGNESIUM OXIDE 400 MG TABLET BY MOUTH (17:32)
[2022-08-10] MEDS: BUMETANIDE 1 MG TABLET BY MOUTH (17:32)
[2022-08-10] MEDS: FERROUS SULFATE 324 MG TABLET PO (17:32)
[2022-08-10 20:00] VITALS: BP 120/61; PULSE 77; RESP 16; TEMP 36.6; O2SAT 98
[2022-08-10] MEDS: rifAXIMin 550 MG TABLET PO (20:50)
[2022-08-11] MEDS: SODIUM CHLORIDE 0.9% IV 1,000 ML 85 ML IV CONT (01:35)
[2022-08-11] MEDS: HYDROcodone/acetaminophen (*CRX) 5-325 MG TABLET 1 TAB PO (03:27)
[2022-08-11] MEDS: LEVOTHYROXINE SODIUM 112 MCG TABLET PO (06:01)
[2022-08-11] MEDS: HYDROmorphone HCL INJ (*CRX) 1 MG/ML SYR 0.5 MG IV PUSH ×2 (06:06→13:08)
[2022-08-11] MEDS: ALPRAZolam (*CRX) 0.5 MG TABLET PO (06:06)
[2022-08-11 06:08] LABS: Hematocrit 25.7 % (37.0-47.0); Hemoglobin 7.5 g/dL (12.0-15.0); Mean Corpuscular HGB Conc 29.2 g/dl (32-36); Mean Corpuscular Volume 88.9 fl (80-100); Mean Platelet Volume 10.8 fl (7.4-10.4); Platelet Count Result 324 k/mm3 (150-375); Red Blood Count 2.89 M/mm3 (4.2-5.4); Red Cell Distribution Width 18.6 % (11.5-14.5)
[2022-08-11 06:20] LABS: Anion Gap 4 mmol/L (8-16); Blood Urea Nitrogen 30 mg/dL (7-17); Calcium 8.4 mg/dL (8.4-10.2); Carbon Dioxide 33 mmol/L (22-30); Chloride 103 mmol/L (98-107); Estimated CRCL calculation 63 ml/min; Estimated Glomerular Filt Rate > 60; Glucose 119 mg/dL (65-110); Magnesium 1.9 mg/dL (1.6-2.3); Potassium 4.1 mmol/L (3.4-5.0); Sodium 140 mmol/L (137-145)
[2022-08-11 07:20] VITALS: BP 147/54; PULSE 58; RESP 16; TEMP 35.1; O2SAT 100
[2022-08-11 08:00] VITALS: BP 127/56; PULSE 63; RESP 20; TEMP 36.1; O2SAT 100
[2022-08-11] MEDS: FLUTICASONE/SALMETEROL 115-21 MCG INHALER 1 PUFF 2 PUFF INHALATION (08:08)
[2022-08-11 08:12] VITALS: O2SAT 96
[2022-08-11] MEDS: valACYclovir HCL 500 MG TABLET 1000 MG PO (08:47)
[2022-08-11] MEDS: SPIRONOLACTONE 25 MG TABLET BY MOUTH (08:47)
[2022-08-11] MEDS: DICYCLOMINE HCL 10 MG CAPSULE PO ×2 (08:47→12:57)
[2022-08-11] MEDS: ATORVASTATIN 20 MG TABLET PO (08:48)
[2022-08-11] MEDS: BUMETANIDE 1 MG TABLET BY MOUTH (08:48)
[2022-08-11] MEDS: PANTOPRAZOLE 40 MG TABLET PO (08:48)
[2022-08-11] MEDS: MONTELUKAST SODIUM 10 MG TABLET PO (08:48)
[2022-08-11] MEDS: POTASSIUM CHLORIDE 20 MEQ TABLET.ER BY MOUTH (08:48)
[2022-08-11] MEDS: allopurinoL 100 MG TABLET PO (08:48)
[2022-08-11] MEDS: rifAXIMin 550 MG TABLET PO (08:48)
[2022-08-11 08:49] VITALS: PULSE 58
[2022-08-11] MEDS: MULTIVITAMINS THERAPEUTIC TAB (*BKC) 1 TABLET PO (08:49)
[2022-08-11] MEDS: PARoxetine 10 MG TABLET 30 MG PO (08:49)
[2022-08-11] MEDS: CIPROFLOXACIN 500 MG TAB PO (08:49)
[2022-08-11] MEDS: ENOXAPARIN 40 MG/0.4 ML SYRINGE SUB-Q (08:49)
[2022-08-11] MEDS: AMIODARONE HCL 100 MG TABLET BY MOUTH (08:49)
[2022-08-11 08:53] VITALS: BP 121/59; PULSE 69; RESP 14; O2SAT 100
[2022-08-11 11:48] VITALS: BP 145/68; PULSE 85; RESP 20; TEMP 36.2; O2SAT 100
--- NOTE | 2022-08-11 12:19 | PM.DS ---
DS: Admitting Diagnosis Discharge Date 08/11/2022 Admitting Diagnosis left hip and right ankle pain.? DS: Discharge Diagnosis Discharge Diagnosis (1) Acute pain of left hip: Code(s): M25.552 - Pain in left hip Status: Acute Assessment and Plan: ED-HPI narrative: 62-year-old female who is a very poor historian history of COPD, osteoporosis, hypothyroidism, status post knee spacer to the left knee 18 months ago presents to the emergency room for evaluation of left hip and right ankle pain.? Patient was seen here in the emergency room 1 week ago for left hip and knee pain for 2 days.? States that she was standing when she felt a pop in her left hip, causing pain to radiate into her left knee.? Imaging at that time was found to have a displaced spacer in her left knee.? Patient was transferred to [place] for further evaluation, and so her care could be managed by the orthopedist, Dr. Pinto.? Patient states they were concerned over a possible septic hip, so they performed an arthrocentesis.? Patient states there is no infection noted.? Patient states she was sent home with Seroquel and gabapentin for pain.? Patient states that she has been ambulating at home with a walker, and is now complaining of right ankle pain.? Patient denies any new injury or trauma.? Patient states that she lives in assisted living in [facility]. 08/10/2022 interval history: Patient with chronic hip pain concerning for septic joint patient was seen at the [facility] and there was no infection and discharged, now presents with complaint left hip pain ankle pain patient is seen by orthopedic suspect possible gout patient may need steroid injection, will continue to monitor and provide pain control and have PT OT evaluate the patient. (2) Leukocytosis: Code(s): D72.829 - Elevated white blood cell count, unspecified Status: Acute Assessment and Plan: Patient with a leukocytosis etiology uncertain no obvious source of infection patient is being treated Cipro and vancomycin will follow-up on the blood culture and monitor (3) Acute pain of left knee: Code(s): M25.562 - Pain in left knee Status: Acute Assessment and Plan: Patient seen by orthopedic surgeon and further recommendation to follow DS: Summary Hospital Course Reason for hospitalization: HPI narrative: 62-year-old female who is a very poor historian history of COPD, osteoporosis, hypothyroidism, status post knee spacer to the left knee 18 months ago presents to the emergency room for evaluation of left hip and right ankle pain.? Patient was seen here in the emergency room 1 week ago for left hip and knee pain for 2 days.? States that she was standing when she felt a pop in her left hip, causing pain to radiate into her left knee.? Imaging at that time was found to have a displaced spacer in her left knee.? Patient was transferred to [place] for further evaluation, and so her care could be managed by the orthopedist, Dr. Pinto.? Patient states they were concerned over a possible septic hip, so they performed an arthrocentesis.? Patient states there is no infection noted.? Patient states she was sent home with Seroquel and gabapentin for pain.? Patient states that she has been ambulating at home with a walker, and is now complaining of right ankle pain.? Patient denies any new injury or trauma.? Patient states that she lives in assisted living in [facility]. Hospital Course: ?Patient with chronic hip pain concerning for septic joint patient was seen at the [facility] and there was no infection and discharged, now presents with complaint left hip pain ankle pain patient is seen by orthopedic suspect possible gout patient may need steroid injection, will continue to monitor and provide pain control and have PT OT evaluate the patient. patient was given steroid injection in her Rt ankle, today patient feels better and her pain is controlled,
[2022-08-11] MEDS: MAGNESIUM OXIDE 400 MG TABLET BY MOUTH (12:57)
[2022-08-11] MEDS: FERROUS SULFATE 324 MG TABLET PO (12:57)
== END 2022-08-11 14:50 | disposition home or self-care (01) ==
LOC: ANHED 19:55 → ANH3MEDSUR 21:37
PROVIDERS: Admitting Provider Family Medicine; Emergency Provider Nurse Practitioner Family; PCP Family Medicine; Visit Provider Family Medicine
DX: M25.571 Pain in right ankle and joints of right foot (principal); G89.29 Other chronic pain; Z96.653 Presence of artificial knee joint, bilateral; D64.9 Anemia, unspecified; F41.9 Anxiety disorder, unspecified; J44.9 Chronic obstructive pulmonary disease, unspecified; I48.91 Unspecified atrial fibrillation; I11.0 Hypertensive heart disease with heart failure; J98.11 Atelectasis; I50.9 Heart failure, unspecified; M81.0 Age-related osteoporosis without current pathological fracture; E03.9 Hypothyroidism, unspecified; G47.33 Obstructive sleep apnea (adult) (pediatric); Z99.89 Dependence on other enabling machines and devices; D72.829 Elevated white blood cell count, unspecified; M16.0 Bilateral primary osteoarthritis of hip; F17.210 Nicotine dependence, cigarettes, uncomplicated; Z79.51 Long term (current) use of inhaled steroids; Z79.899 Other long term (current) drug therapy; Z82.49 Family history of ischemic heart disease and other diseases of the circulatory system
CPT/HCPCS: 20605; 36415; 71045; 73502; 73562; 73610; 73700; 80048; 80053; 81001; 83605; 83735; 85025; 85027; 85652; 86140; 87040; 87081; 94640; 96361; 96372; 96374; 96375; 96376; 99285; A9270; G0378; G0379; J1040; J1170; J1650; J3010; J3370; J7030

== ENCOUNTER 2022-09-11 15:44 | Emergency (ER) | payer OTHER, SELFPAY ==
[2022-09-11 15:47] VITALS: BP 141/76; PULSE 76; RESP 20; TEMP 37.4; O2SAT 96
--- NOTE | 2022-09-11 17:03 | PC.NURSE ---
pt wheeling herself in and out of dept without difficulty. no distress noted.
--- NOTE | 2022-09-11 17:39 | PC.NURSE ---
pt not in lobby or found outside when called
== END 2022-09-11 17:03 | disposition left against medical advice (07) ==
PROVIDERS: PCP Family Medicine
DX: R07.81 Pleurodynia (principal); M79.605 Pain in left leg
CPT/HCPCS: 99199

== ENCOUNTER 2022-11-01 22:19 | Observation (INO) | payer OTHER, SELFPAY ==
--- NOTE | ~2022-11-01 | CT_ITS ---
Clinical Indication: Chest pain CT Scan of the Chest with Contrast: Technique: Contiguous sections were acquired throughout the chest after intravenous administration of 100 cc of Omnipaque 350. Dose reduction technique was used on this scan by utilizing automated expos ure control and iterative reconstruction technique. The dose-length product (DLP) was 532.03 mGy-cm. COMPARISON: 02/17/2020 Findings: There is no evidence of any significant mediastinal, hilar or axillary lymphadenopathy. There is no f illing defect in the pulmonary arterial tree to suggest pulmonary embolus. There is no evidence of ao rtic dissection or aneurysm. There is atherosclerotic calcification of the aorta. There is no evidence of pleural or pericardial effusion. The lungs are clear. No pulmonary nodules or infiltrates are noted. Images through the upper abdomen reveal 3.9 x 2.3 cm right adrenal mass. Chronic bilateral rib fractu re deformities are noted. Impression: No evidence of pulmonary embolus, aortic dissection, or aortic aneurysm. Clear lungs. 3.9 x 2.3 cm right adrenal mass. Stability since 02/17/2020 is most consistent with benign adenoma. Reviewed, dictated and finalized at location . Impression: No evidence of pulmonary embolus, aortic dissection, or aortic aneurysm. Clear lungs. 3.9 x 2.3 cm right adrenal mass. Stability since 02/17/2020 is most consistent with benign adenoma.
--- NOTE | ~2022-11-01 | XR_ITS ---
EXAMINATION: XR chest 2V Exam Date/Time: 11/01/2022 22:37 CDT HISTORY: sob and hx of COPD Comparison: 08/09/2022. RESULT: Lines, tubes, and devices: ACDF hardware. Bilateral shoulder arthroplasties. Lungs and pleura: Diffuse mild reticular opacities. No focal consolidation. Cardiomediastinal silhouette: Stable. Other: No acute osseous or upper abdominal finding. Multiple bilateral old rib fractures. IMPRESSION: Mild interstitial edema. Reviewed, dictated and finalized at location K. IMPRESSION: Mild interstitial edema.
[2022-11-01 22:16] VITALS: BP 153/73; PULSE 86; RESP 16; TEMP 36.9; O2SAT 96
--- NOTE | 2022-11-01 22:21 | ECG_ITS ---
Measurements Intervals [place] Rate: 87 P: 29 NH: 165 QRS: -38 QRSD: 105 T: 67 QT: 364 QTc: 439 Interpretive Statements SINUS RHYTHM MARKED LEFT AXIS DEVIATION [QRS AXIS < -30] NONSPECIFIC T-WAVE ABNORMALITY ABNORMAL ECG COMPARED TO ECG 04/03/2019 15:02:33 T-WAVE ABNORMALITY NOW PRESENT Electronically Signed On 11-02-2022 9:45:17 CDT by Rony Gifford M.D.
[2022-11-01 22:54] LABS: Basophils Absolute Auto 0.1 K/mm3 (0.0-0.1); Basophils Percent Auto 0.5 % (0.2-1.2); Eosinophils Percent Auto 0.1 % (0-4.4); Hematocrit 37.9 % (37.0-47.0); Hemoglobin 11.5 g/dL (12.0-15.0); Immature Granulocyte Absolute 0.24 K/mm3 (0.00-0.031); Immature Granulocyte Percent A 1.4 % (0-0.5); Lymphocytes Absolute Auto 2.44 K/mm3 (0.9-3.2); Lymphocytes Percent Auto 14.4 % (18.3-44.2); Mean Corpuscular HGB Conc 30.3 g/dl (32-36); Mean Corpuscular Hemoglobin 27.4 pg (26-34); Mean Corpuscular Volume 90.2 fl (80-100); Mean Platelet Volume 11.8 fl (7.4-10.4); Monocytes Absolute Auto 0.8 K/mm3 (0.1-0.6); Monocytes Percent Auto 4.6 % (2.6-8.5); Neutrophils Absolute Auto 13.4 K/mm3 (1.3-6.7); Platelet Count Result 393 k/mm3 (150-375); Red Cell Distribution Width 25.9 % (11.5-14.5); White Blood Count 16.9 K/mm3 (4.5-10.0)
[2022-11-01] MEDS: MORPHINE SULFATE (*CRX) 2 MG/ML INJ IV PUSH (22:54)
[2022-11-01 23:06] LABS: INR 0.9; Prothrombin Time 12.2 Seconds (11.1-14.7)
[2022-11-01 23:07] LABS: Alanine Aminotransferase 19 U/L (6-35); Albumin Level 4.4 g/dL (3.5-5.1); Alkaline Phosphatase 122 U/L (38-126); Anion Gap 5 mmol/L (8-16); Aspartate Amino Transferase 27 U/L (14-36); Bilirubin,Total 0.2 mg/dL (0.2-1.3); Blood Urea Nitrogen 38 mg/dL (7-17); Calcium 9.5 mg/dL (8.4-10.2); Carbon Dioxide 33 mmol/L (22-30); Chloride 100 mmol/L (98-107); Estimated CRCL calculation 50 ml/min; Estimated Glomerular Filt Rate 50; Glucose 94 mg/dL (65-110); Lipase 269 U/L (23-300); Partial Thromboplastin Time 26.4 SECONDS (22.3-36.8); Potassium 4.4 mmol/L (3.4-5.0); Sodium 138 mmol/L (137-145)
[2022-11-01 23:09] LABS: Anisocytosis 1+ (NORMAL); Hypochromasia 2+ (NORMAL); Ovalocytes 1+ (NORMAL); Platelet Estimate Adequate (Adequate); Schistocytes None Seen (NORMAL); Stomatocytes 1+ (NORMAL)
[2022-11-01 23:15] LABS: NT Pro B Type Natriuretic Pept 533 pg/mL (19.9-100)
[2022-11-01 23:18] LABS: Troponin I 0.017 ng/mL (0.000-0.034)
[2022-11-01 23:37] VITALS: BP 138/81; PULSE 76; RESP 16; O2SAT 98
[2022-11-02] VITALS (8 sets, daily range): BP systolic 125–143; BP diastolic 57–98; PULSE 64–76; RESP 13–21; TEMP 36.8–36.9; O2SAT 93–98; BMI 30.9
--- NOTE | 2022-11-02 | ECHO_ITS ---
Patient Info Name: Tracy Serna Age: 62 years : 1960 Gender: Female Ht: 66 in Wt: 191 lbs BSA: 2.04 m2 HR: 83 bpm BP: 143 / 57 mmHg Technical Quality: Fair Exam Date: 11/02/2022 1:34 PM Exam Location: [facility] Room: 323 Patient Status: Inpatient Admit Date: 11/02/2022 Staff Ordering Physician: Oswaldo Fields DO Customer Solutions Coordinator: Ariana Jovel RDCS Attending Provider: Dinh Grullon MD Referring Physician: Donnie QUIROGA; Exam Type: CA echo doppler color flow Study Info Indications - chest pain Complete two-dimensional, color flow and Doppler transthoracic echocardiogram is performed. Summary 1. Complete two-dimensional, color flow and Doppler transthoracic echocardiogram is performed. 2. Left ventricular chamber dimension is normal. 3. Left ventricular systolic function is normal, estimated at 65-70%. 4. There is mild concentric increased left ventricular wall thickness. 5. The left ventricular diastolic function is grade I diastolic dysfunction. 6. E/e' 15 is elevated. 7. Left atrial chamber dimension is mildly enlarged. 8. There is mild aortic valve sclerosis. 9. The mitral valve has moderately calcified leaflets. 10. No pulmonary hypertension, estimated pulmonary arterial systolic pressure is 26 mmHg. Left Ventricle E/e' 15 is elevated. Left ventricular chamber dimension is normal. Left ventricular systolic function is normal, estimated at 65-70%. There is mild concentric increased left ventricular wall thickness. The left ventricular diastolic function is grade I diastolic dysfunction. Right Ventricle Right ventricular chamber dimension is normal. Right ventricular systolic function is normal. Left Atria Left atrial chamber dimension is mildly enlarged. Right Atria Right atrial chamber dimension is normal. Aortic Valve The aortic valve is not well visualized. Cannot determine number of aortic valve leaflets. There is mild aortic valve sclerosis. There is no aortic valve stenosis. There is no aortic valve regurgitation. Pulmonic Valve There is no pulmonic regurgitation. Mitral Valve The mitral valve has moderately calcified leaflets. There is no mitral valve stenosis. There is no mitral valve regurgitation. Tricuspid Valve There is no tricuspid valve regurgitation. No pulmonary hypertension, estimated pulmonary arterial systolic pressure is 26 mmHg. Pericardium/Pleural There is no pericardial effusion. Inferior Vena Cava Normal inferior vena cava with >50% collapse upon inspiration consistent with normal right atrial pressure, 5 mmHg. Aorta The aortic root size at the sinus of Valsalva is normal. Left Ventricular Outflow Tract Name Value Normal LVOT 2D LVOT Diameter 2.0 cm LVOT Doppler LVOT Peak Gradient 7 mmHg LVOT Mean Gradient 5 mmHg LVOT VTI 29 cm LVOT VTI/AV VTI Ratio 0.9 LVOT Stroke Volume 94 ml LVOT CO 20.2 l/min LVOT CI 9.9 l/min/m2 Pulmonic Valve
[2022-11-02] MEDS: NITROGLYCERIN SL 0.4 MG TABLET SUBLINGUAL (00:49)
--- NOTE | 2022-11-02 00:50 | PC.NURSE ---
0049 - 1st SL Nitroglycerin given at this time. Pt rates pain 10/10. BP 140/78. 0054 - 2nd SL Nitroglycerin given at this time . Pt rates pain 10/10. BP 130/78 0059 - 3rd SL Nitroglycerin given at this time. pt rates pain 10/10. BP 119/71
[2022-11-02] MEDS: MORPHINE SULFATE (*CRX) 4 MG/ML INJ IV PUSH (01:01)
--- NOTE | 2022-11-02 01:28 | ED.GENADULT ---
HPI - General Adult General Chief complaint: Chest Pain Stated complaint: CHEST PAIN Time Seen by Provider: 11/01/22 22:25 History of Present Illness HPI narrative: Patient 62-year-old female who presents the emergency department with chief complaint of chest pain patient reports the pain began about 40 minutes prior to arrival patient was given aspirin by EMS and reports that the pain was radiating down her left arm. The patient does report the pain is worse with inspiration patient reports prior history of A-fib in the past patient reports that she also had a slight heart attack. Related Data Home Medications Medication Instructions Recorded Confirmed albuterol sulfate 2.5 mg/0.5 mL 2.5 mg inhalation Q20M 02/13/19 10/30/22 solution for nebulization allopurinol 100 mg tablet 100 mg PO DAILY 02/13/19 10/30/22 atorvastatin 20 mg tablet 20 mg PO DAILY 02/13/19 10/30/22 dicyclomine 10 mg capsule 10 mg PO TID 02/13/19 10/30/22 levothyroxine 112 mcg tablet 112 mcg PO DAILY 02/13/19 10/30/22 montelukast 10 mg tablet 10 mg PO DAILY 02/13/19 10/30/22 multivitamin 1 cap PO DAILY 02/13/19 10/30/22 omeprazole 40 mg capsule,delayed 40 mg PO DAILY 02/13/19 10/30/22 release paroxetine HCl 30 mg tablet 30 mg PO DAILY 02/13/19 10/30/22 valacyclovir 1 gram tablet 1,000 mg PO DAILY 02/13/19 10/30/22 (Valtrex) ferrous sulfate 324 mg (65 mg 324 mg PO BID 08/05/19 10/30/22 iron) tablet,delayed release prednisone 20 mg tablet 20 mg PO DAILY 10/30/22 10/30/22 Allergies Allergy/AdvReac Type Severity Reaction Status Date / Time codeine Allergy Unknown Unknown Verified 11/01/22 22:53 Penicillins Allergy Unknown Unknown Verified 11/01/22 22:53 Sulfa (Sulfonamide Allergy Unknown Unknown Verified 11/01/22 22:53 Antibiotics) Sulfonamides Allergy Intermediate unknown Uncoded 11/01/22 22:53 Review of Systems Review of Systems: A 10 system review of systems was completed on the patient and is negative except for what is stated in the HPI. Nursing and ancillary documentation was reviewed. [facility] Past Medical History Medical History Abnormal CT of the chest Anemia Anxiety Asthma Atrial fibrillation with rapid ventricular response Back pain Chest pain in adult CHF (congestive heart failure) Chronic obstructive pulmonary disease, unspecified Depression Diastolic dysfunction Dyslipidemia Edema of both legs Essential hypertension GI bleed Gout Hypothyroidism Hypoxemia Left rotator cuff tear Obstructive sleep apnea Orthostatic syncope PAF (paroxysmal atrial fibrillation) PUD (peptic ulcer disease) Shortness of breath Surgical History Surgical History History of bilateral knee replacement Hx of appendectomy Hx of cholecystectomy Hx of hysterectomy Family History Family History Mother Family history of cardiovascular disease, Onset Age: 37 Sister Family history of type 2 diabetes mellitus Mother Hypertension Social History Social History Smoking status: Former smoker Tobacco type: cigarettes and e-cigarettes/vaping Alcohol intake: never Substance use: former Substance use type: marijuana Lack of Transportation: No Lack of Food: Never True Current Housing: I Have Housing Concerned About Future Housing: No Difficulty Paying Gas/Electric Bills: No Difficulty Paying for Meds: No Currently Unemployed: No Education: Grade School Difficulty w/ Childcare or Family Care: No Spiritual care concerns: No Exam Narrative: GENERAL: Well-appearing, well-nourished, and in no acute distress. HEAD: Normocephalic, atraumatic. EYES: PERRLA and EOMI. ENT: Nares clear, no rhinorrhea or epistaxis. Mucous membranes moist. NECK: Supple.
[2022-11-02] MEDS: HYDROmorphone HCL INJ (*CRX) 1 MG/ML SYR IV PUSH ×2 (01:42→05:04)
[2022-11-02 02:32] LABS: Troponin I 0.017 ng/mL (0.000-0.034)
--- NOTE | 2022-11-02 05:22 | PM.IMHP ---
H&P: HPI History of Present Illness Date/Time: 11/02/22 05:22 Chief Complaint: ?I am having chest pain and that is why I am here? Narrative: Our patient is 62 years old white female with chronic medical issues as below, who is complaining of chest pain which began about an hour prior to arrival to the ER. Pain intensity is 8/10, located in the anterior chest radiating down her left arm. Pain gets worse with inspiration. She has a history of AFib in the past for which she is under care of local sales associate. She also says that she had a mild heart attack in the past which did not require any stents. She was given aspirin by the EMS on route to the ED and received a sublingual nitroglycerin and IV Dilaudid and morphine in the ER which helped with her symptoms. Her cardiac enzymes ordered in the ED are negative. She is being placed under observation for tele monitoring and workup. Review of Systems Review of Systems: All systems reviewed & are unremarkable except as noted in HPI and below PMFSH Past Medical History Medical History Abnormal CT of the chest Anemia Anxiety Asthma Atrial fibrillation with rapid ventricular response Back pain Chest pain in adult CHF (congestive heart failure) Chronic obstructive pulmonary disease, unspecified Depression Diastolic dysfunction Dyslipidemia Edema of both legs Essential hypertension GI bleed Gout Hypothyroidism Hypoxemia Left rotator cuff tear Obstructive sleep apnea Orthostatic syncope PAF (paroxysmal atrial fibrillation) PUD (peptic ulcer disease) Shortness of breath Surgical History Surgical History History of bilateral knee replacement Hx of appendectomy Hx of cholecystectomy Hx of hysterectomy Family History Family History Mother Family history of cardiovascular disease, Onset Age: 37 Sister Family history of type 2 diabetes mellitus Mother Hypertension Social History Social History Smoking status: Former smoker Tobacco type: cigarettes and e-cigarettes/vaping Alcohol intake: never Substance use: former Substance use type: marijuana Lack of Transportation: No Lack of Food: Never True Current Housing: I Have Housing Concerned About Future Housing: No Difficulty Paying Gas/Electric Bills: No Difficulty Paying for Meds: No Currently Unemployed: No Education: Grade School Difficulty w/ Childcare or Family Care: No Spiritual care concerns: No Meds Home Medications and Allergies Home Medications Medication Instructions Recorded Confirmed Type albuterol sulfate 2.5 mg/0.5 mL 2.5 mg inhalation Q20M 02/13/19 10/30/22 History solution for nebulization allopurinol 100 mg tablet 100 mg PO DAILY 02/13/19 10/30/22 History atorvastatin 20 mg tablet 20 mg PO DAILY 02/13/19 10/30/22 History dicyclomine 10 mg capsule 10 mg PO TID 02/13/19 10/30/22 History levothyroxine 112 mcg tablet 112 mcg PO DAILY 02/13/19 10/30/22 History montelukast 10 mg tablet 10 mg PO DAILY 02/13/19 10/30/22 History multivitamin 1 cap PO DAILY 02/13/19 10/30/22 History omeprazole 40 mg capsule,delayed 40 mg PO DAILY 02/13/19 10/30/22 History release paroxetine HCl 30 mg tablet 30 mg PO DAILY 02/13/19 10/30/22 History valacyclovir 1 gram tablet 1,000 mg PO DAILY 02/13/19 10/30/22 History (Valtrex) ferrous sulfate 324 mg (65 mg 324 mg PO BID 08/05/19 10/30/22 History iron) tablet,delayed release potassium chloride 20 mEq See Rx Instructions .Route 02/23/20 10/30/22 Rx tablet,extended release(part/cryst) .COMPLEX #30 tabs alendronate 70 mg tablet 70 mg PO WEEKLY #14 tabs 08/18/20 10/30/22 Rx albuterol sulfate 90 mcg/actuation 1 inh inhalation Q4-6H PRN 12/09/20 10/30/22 Rx aerosol inhaler (ProAir HFA) shortness of breath or wheezing #8.5 g
[2022-11-02 05:30] LABS: Troponin I 0.021 ng/mL (0.000-0.034)
--- NOTE | 2022-11-02 06:28 | ADMGEN ---
This patient, Tracy Serna, was admitted to IMU Room 232-01. Patient/family oriented to hospital policies and general routines including ID bracelet, bed and alarms, visiting hours, pain management, procedures, bathroom and other care routines, personal items, smoking policy, room service/diet, and visiting hours. Information on how to activate the Rapid Response Team has been discussed. Patient/Family are encouraged to report perceived risks to care and to ask questions if they do not understand what they are told or what they should do.
--- NOTE | 2022-11-02 08:12 | PM.CNCAR ---
Assessment and Plan Assessment and plan (1) Chest pain: Code(s): R07.9 - Chest pain, unspecified Status: Acute Assessment and Plan: Probably musculoskeletal. AL r/o by serial troponin and EKG. Negative nuclear stress test in Apr 2022. Obtain echo. If unremarkable no further cardiac workup is needed. (2) PAF (paroxysmal atrial fibrillation): Code(s): I48.0 - Paroxysmal atrial fibrillation Status: Acute Assessment and Plan: In Sinus rhythm. On Amiodarone and Eliquis. (3) Diastolic dysfunction: Code(s): I51.89 - Other ill-defined heart diseases Status: Acute Assessment and Plan: Appears euvolemic on Bumex and Spironolactone. (4) Dyslipidemia: Code(s): E78.5 - Hyperlipidemia, unspecified Status: Acute Assessment and Plan: On Atorvastatin. (5) Essential hypertension: Code(s): I10 - Essential (primary) hypertension Status: Acute Assessment and Plan: Stable. History of Present Illness History of Present Illness Consult date/time: 11/02/22 08:12 Reason For Visit: CHEST PAIN Narrative: 62 yr old woman who is my regular cardiology patient presents to ER for chest pain. She has a history of COPD, hypertension, dyslipidemia, PAF on Amiodarone, Anemia (had negative endoscopies). Reports left chest intermittent pain with radiation to left arm at rest that is worse with deep inspiration and palpation of chest wall. No recurrence of palpitations since on Amiodarone. Currently she cannot walk as she has a spacer in left knee and will need knee surgery next month for it. Normally reports she can walk minimal distance due to sob. She quit smoking 08/17/22.? Denies chest pain, orthopnea, PND, edema, palpitations. CARDIOVASCULAR PROCEDURES ECHO/MUGA: 04/12/22 Echo: EF 60-65%, mod LVH, grade I diastolic dysfunction (E/e' 13), mod MAC. Echo (EF 55-60%, septal hypokinesis, severe LVH, grade II diastolic dysfunction, trace MR/TR. Atrial fib.) - 02/02/2018 ELECTROPHYSIOLOGY: 10/30/22 EKG: Sinus rhythm, LAFB, QTc 417 ms. 02/21/22 EKG: Sinus rhythm, PAC, delayed precordial R/S transition, QTc 422 ms. 08/17/20 EKG: Sinus rhythm first degree AV block ,LAD, QTc 436 ms. 01/01/20 EKG: Sinus rhythm, IVCD, delayed precordial R/S transition, QTc 467 ms. 11/21/19 EKG: Sinus bradycardia at 48 bpm, delayed R/S transition, QTc 425 ms. EKG (Sinus rhythm, LAFB, QTc 447 ms.) - 09/06/2018 EKG (Sinus rhythm at 94 bpm, LAFB, cannot r/o septal infarct, borderline ST-T wave in lateral leads, QTC 419 ms.) - 06/06/2018 EKG (Atrial fibrillation at 116 bpm, LAFB, QTc 381 ms.) - 04/22/2018 STRESS TESTS: 04/12/22 Lexiscan myoview: Negative. MPI (Lexiscan myoview: Negative for ischemia.) - 09/13/2018 CT/MRI: 08/11/19 CT abd: Mild hyperdensity in liver, could be amiodarone toxicity or deposition disorders. Chest CT (No pulmonary embolism, mild pulm edema, cardiomegaly, stable 4.2 x 2.2 cm right adrenal adenoma.) - 06/06/2018 Review of Systems Constitutional: Constitutional: Reports as per HPI, Denies chills and Denies fever(s) Cardiovascular: Cardiovascular: Reports as per HPI, Reports chest pain, Denies irregular heart rhythm, Denies leg edema and Denies lightheadedness Respiratory: Respiratory: Reports as per HPI and Reports dyspnea on exertion Gastrointestinal: Gastrointestinal: Reports as per HPI and Denies abdominal pain Genitourinary: Genitourinary: Reports as per HPI and Denies dysuria Musculoskeletal: Musculoskeletal: Reports as per HPI Neurologic: Reports as per HPI, Denies dizziness and Denies syncope [facility] Past Medical History Medical History Abnormal CT of the chest Anemia Anxiety Asthma Atrial fibrillation with rapid ventricular response Back pain Chest pain in adult CHF (congestive heart failure) Chronic obstructive pulmonary disease, unspecified Depression Diastolic dysfunction Dyslipidemia Edema of both legs Essential h
[2022-11-02 08:30] LABS: Glucose Point of Care 80 mg/dl (65-105)
--- NOTE | 2022-11-02 10:14 | PM.EVENT ---
Event Note Event Note Event Note: Patient admitted early this morning. Admitted with sharp musculoskeletal chest pain. Cardiology consult. Will get an echo and then discharge the patient home. Final diagnosis- atypical chest pain
[2022-11-02] MEDS: AMIODARONE HCL 100 MG TABLET PO (11:07)
[2022-11-02] MEDS: ATORVASTATIN 20 MG TABLET PO (11:07)
[2022-11-02] MEDS: valACYclovir HCL 500 MG TABLET 1000 MG PO (11:07)
[2022-11-02] MEDS: MULTIVITAMINS THERAPEUTIC TAB (*BKC) 1 TABLET PO (11:07)
[2022-11-02] MEDS: MAGNESIUM OXIDE 400 MG TABLET PO (11:08)
[2022-11-02] MEDS: PARoxetine 10 MG TABLET 30 MG PO (11:08)
[2022-11-02] MEDS: predniSONE 20 MG TABLET PO (11:08)
[2022-11-02] MEDS: SPIRONOLACTONE 25 MG TABLET PO (11:08)
[2022-11-02] MEDS: PANTOPRAZOLE 40 MG TABLET PO (11:08)
[2022-11-02] MEDS: rifAXIMin 550 MG TABLET PO (11:09)
[2022-11-02] MEDS: oxyCODONE/ACETAMINOPHEN (*CRX) 10-325 MG TABLET 1 TAB PO (11:09)
[2022-11-02] MEDS: BUMETANIDE 1 MG TABLET PO (11:09)
[2022-11-02] MEDS: LEVOTHYROXINE SODIUM 112 MCG TABLET PO (11:12)
[2022-11-02 11:40] LABS: Glucose Point of Care 105 mg/dl (65-105)
--- NOTE | 2022-11-02 16:06 | PC.NURSE ---
On 11/02/22, the student, Rubi [facility], provided care and completed [facility] documentation on this patient. I have reviewed the student's documentation and agree with the findings.
--- NOTE | 2022-11-20 12:12 | PM.DS ---
DS: Admitting Diagnosis Discharge Date 11/02/22 Admitting Diagnosis Chest pain DS: Summary Hospital Course Hospital Course: Patient admitted early this morning.? Admitted with sharp musculoskeletal chest pain.? Cardiology consult.? Will get an echo and then discharge the patient home.? Time Spent with Patient Time attestation: Total time spent providing and/or coordinating discharge services: Discharge Plan Discharge Consulting providers: Oswaldo Fields; Rony Gifford; Brock Wetzel; Uriel Angelo Discharging Clinician: Dinh Grullon Anticipated Discharge Date/Time: 11/02/22 10:13 Patient Disposition: Home, Self-Care Activity: no preference Diet: heart healthy Stand Alone Forms: General Discharge Information Follow-up/Referrals: Anitha,Kobe Perez MD [Primary Care Provider] - Discharge Medications: Continued albuterol sulfate 2.5 mg/0.5 mL solution for nebulization 2.5 mg INHALATION Q20M allopurinol 100 mg tablet 100 mg PO DAILY atorvastatin 20 mg tablet 20 mg PO DAILY dicyclomine 10 mg capsule 10 mg PO TID montelukast 10 mg tablet 10 mg PO HS Rx Instructions: pt states she takes at night multivitamin Capsule 1 cap PO DAILY omeprazole 40 mg capsule,delayed release(DR/EC) 40 mg PO DAILY paroxetine HCl 30 mg tablet 30 mg PO DAILY levothyroxine 112 mcg tablet 112 mcg PO DAILY valacyclovir [Valtrex] 1 gram tablet 1,000 mg PO DAILY ferrous sulfate 324 mg (65 mg iron) tablet,delayed release (DR/EC) 324 mg PO BID prednisone 20 mg tablet 20 mg PO DAILY albuterol sulfate [ProAir HFA] 90 mcg/actuation HFA aerosol inhaler 1 inh INHALATION Q4-6H PRN (Reason: shortness of breath or wheezing) Qty: 8.5 2RF alprazolam 0.5 mg Tablet 0.5 mg PO TID PRN (Reason: Anxiety) Qty: 12 0RF Xifaxan 550 mg Tablet 550 mg PO Q12HR Qty: 60 0RF oxycodone-acetaminophen 10-325 mg tablet 1 tablet PO Q6H PRN (Reason: Pain) spironolactone 25 mg tablet 25 mg PO DAILY magnesium oxide 400 mg (241.3 mg magnesium) tablet 400 mg PO BID bumetanide 1 mg tablet 1 mg PO BID potassium chloride 20 mEq tablet,ER particles/crystals See Rx Instructions .ROUTE .COMPLEX Qty: 30 5RF Dose Instruction: TAKE 1 TABLET BY MOUTH DAILY Rx Instructions: TAKE 1 TABLET BY MOUTH DAILY alendronate 70 mg tablet 70 mg PO WEEKLY Qty: 14 0RF budesonide-formoterol [Symbicort] 160-4.5 mcg/actuation HFA aerosol inhaler 2 puff inhalation Q12H Qty: 10.2 11RF Rx Instructions: rinse and spit No Action amiodarone 100 mg tablet See Rx Instructions .ROUTE .COMPLEX Qty: 90 2RF Dose Instruction: TAKE 1 TABLET BY MOUTH DAILY Rx Instructions: TAKE 1 TABLET BY MOUTH DAILY Date of admission: 11/02/22 05:07 Primary Care Provider: Anitha,Kobe Perez Admitting Provider: Warner Baird Attending physician on admission: Dinh Grullon Condition: Stable
== END 2022-11-02 17:05 | disposition home or self-care (01) ==
LOC: ANHED 11-02 05:06 → ANHIMU 11-02 05:39
PROVIDERS: Admitting Provider Family Medicine; Emergency Provider Emergency Medicine; PCP Family Medicine; Visit Provider Hospitalist
DX: R07.89 Other chest pain (principal); I48.0 Paroxysmal atrial fibrillation; I11.9 Hypertensive heart disease without heart failure; E78.5 Hyperlipidemia, unspecified; D64.9 Anemia, unspecified; F41.9 Anxiety disorder, unspecified; I08.0 Rheumatic disorders of both mitral and aortic valves; F32.A Depression, unspecified; J45.909 Unspecified asthma, uncomplicated; M10.9 Gout, unspecified; G47.33 Obstructive sleep apnea (adult) (pediatric); J84.9 Interstitial pulmonary disease, unspecified; R79.89 Other specified abnormal findings of blood chemistry; R94.31 Abnormal electrocardiogram [ECG] [EKG]; D72.829 Elevated white blood cell count, unspecified; Z87.891 Personal history of nicotine dependence; Z79.51 Long term (current) use of inhaled steroids; Z79.52 Long term (current) use of systemic steroids; Z79.899 Other long term (current) drug therapy; Z82.49 Family history of ischemic heart disease and other diseases of the circulatory system
CPT/HCPCS: 36415; 71046; 71275; 80053; 82948; 83690; 83880; 84484; 85025; 85610; 85730; 93005; 93306; 96374; 96375; 96376; 99285; A9270; G0378; G0379; J1170; J2270; J7512; Q9967

== ENCOUNTER 2023-03-31 09:41 | Emergency (ER) | payer OTHER, SELFPAY ==
--- NOTE | ~2023-03-31 | XR_ITS ---
XR hip LT 2V w AP pelvis 03/31/2023 11:04 Indication: Left hip pain Procedure: AP pelvis and 3 views left hip Comparison: 08/09/2022 Findings: Mild osteoarthritis of the left hip. No acute fracture or traumatic malalignment. No focal soft tissue abnormality. No foreign bodies. Impression: 1: Mild osteoarthritis of the left hip. Reviewed, dictated and finalized at location A. L TENDER Impression: 1: Mild osteoarthritis of the left hip.
--- NOTE | ~2023-03-31 | XR_ITS ---
XR lumbar spine 2-3V 03/31/2023 11:04 Indication: Status post fall. Back pain. Procedure: 4 views lumbar spine Comparison: No prior studies for comparison. Findings: There is dextroscoliosis centered at L3. There is disc narrowing at all lumbar levels. Ther e is advanced multilevel facet hypertrophy of the mid and lower lumbar spine. There is mild superior endplate compression deformity of L1, likely chronic. There is atherosclerosis. Impression: 1: Severe lumbar spondylosis with dextroscoliosis. 2: Possible mild superior endplate compression deformity of L1, likely chronic Reviewed, dictated and finalized at location A. [employer] Impression: 1: Severe lumbar spondylosis with dextroscoliosis. 2: Possible mild superior endplate compression deformity of L1, likely chronic
[2023-03-31 09:45] VITALS: BP 143/119; PULSE 83; RESP 16; TEMP 36.6; O2SAT 95
[2023-03-31 10:17] LABS: Basophils Absolute Auto 0.1 K/mm3 (0.0-0.1); Basophils Percent Auto 0.8 % (0.2-1.2); Eosinophils Absolute Auto 0.2 K/mm3 (0-0.3); Eosinophils Percent Auto 2.7 % (0-4.4); Hematocrit 29.3 % (37.0-47.0); Hemoglobin 8.5 g/dL (12.0-15.0); Immature Granulocyte Absolute 0.08 K/mm3 (0.00-0.031); Immature Granulocyte Percent A 1.1 % (0-0.5); Lymphocytes Absolute Auto 1.05 K/mm3 (0.9-3.2); Lymphocytes Percent Auto 14.8 % (18.3-44.2); Mean Corpuscular Hemoglobin 28.6 pg (26-34); Mean Corpuscular Volume 98.7 fl (80-100); Mean Platelet Volume 10.7 fl (7.4-10.4); Monocytes Absolute Auto 0.8 K/mm3 (0.1-0.6); Monocytes Percent Auto 11.7 % (2.6-8.5); Neutrophils Absolute Auto 4.9 K/mm3 (1.3-6.7); Neutrophils Percent Auto 68.9 % (45.5-73.1); Platelet Count Result 329 k/mm3 (150-375); Red Blood Count 2.97 M/mm3 (4.2-5.4); Red Cell Distribution Width 20.4 % (11.5-14.5); White Blood Count 7.1 K/mm3 (4.5-10.0)
[2023-03-31] MEDS: MORPHINE SULFATE (*CRX) 4 MG/ML INJ IV PUSH (10:17)
[2023-03-31 10:21] VITALS: BP 114/72; PULSE 77; RESP 19; O2SAT 95
[2023-03-31 10:27] LABS: Platelet Estimate Adequate (Adequate)
[2023-03-31 10:28] LABS: Anion Gap 1 mmol/L (8-16); Anisocytosis 1+ (NORMAL); Blood Urea Nitrogen 26 mg/dL (7-17); Calcium 9.5 mg/dL (8.4-10.2); Carbon Dioxide 32 mmol/L (22-30); Chloride 104 mmol/L (98-107); Estimated CRCL calculation 61 ml/min; Estimated Glomerular Filt Rate > 60; Glucose 93 mg/dL (65-110); Hypochromasia 2+ (NORMAL); Ovalocytes 1+ (NORMAL); Potassium 4.3 mmol/L (3.4-5.0); Schistocytes None Seen (NORMAL); Sodium 137 mmol/L (137-145)
[2023-03-31 10:29] LABS: Partial Thromboplastin Time 30.6 SECONDS (22.3-36.8); Prothrombin Time 13.2 Seconds (11.1-14.7)
--- NOTE | 2023-03-31 13:43 | ED.GENADULT ---
HPI - General Adult General Chief complaint: Fall Stated complaint: L hip, L sided back pain - glf today Time Seen by Provider: 03/31/23 09:45 History of Present Illness HPI narrative: Patient is a 63-year-old female who presents to the ER after a fall from her bed at her care center. She was trying to get out and fell onto her left hip. Did not strike her lose conscious. Reports she has new hip pain and has exacerbation of her chronic back pain. EMS reports patient was at [facility] last night for her chronic back painas well. No fevers chills or sweat Related Data Home Medications Medication Instructions Recorded Confirmed albuterol sulfate 2.5 mg/0.5 mL 2.5 mg inhalation Q20M 02/13/19 01/31/23 solution for nebulization allopurinol 100 mg tablet 100 mg PO DAILY 02/13/19 01/31/23 atorvastatin 20 mg tablet 20 mg PO DAILY 02/13/19 01/31/23 dicyclomine 10 mg capsule 10 mg PO TID 02/13/19 01/31/23 levothyroxine 112 mcg tablet 112 mcg PO DAILY 02/13/19 01/31/23 montelukast 10 mg tablet 10 mg PO HS 02/13/19 01/31/23 multivitamin 1 cap PO DAILY 02/13/19 01/31/23 omeprazole 40 mg capsule,delayed 40 mg PO DAILY 02/13/19 01/31/23 release paroxetine HCl 30 mg tablet 30 mg PO DAILY 02/13/19 01/31/23 valacyclovir 1 gram tablet 1,000 mg PO DAILY 02/13/19 01/31/23 (Valtrex) ferrous sulfate 324 mg (65 mg 324 mg PO BID 08/05/19 01/31/23 iron) tablet,delayed release prednisone 20 mg tablet 20 mg PO DAILY 10/30/22 01/31/23 oxycodone-acetaminophen 10 mg-325 1 tablet PO Q6H PRN Pain 11/02/22 01/31/23 mg tablet spironolactone 25 mg tablet 25 mg PO DAILY 11/02/22 01/31/23 Allergies Allergy/AdvReac Type Severity Reaction Status Date / Time codeine Allergy Unknown Unknown Verified 03/31/23 10:06 Penicillins Allergy Unknown Unknown Verified 03/31/23 10:06 Sulfa (Sulfonamide Allergy Unknown Unknown Verified 03/31/23 10:06 Antibiotics) Sulfonamides Allergy Intermediate unknown Uncoded 03/31/23 10:06 Review of Systems Review of Systems: All systems reviewed & are unremarkable except as noted in HPI and below ENT: Reports system reviewed and no additional complaints, except as documented Cardiovascular: Cardiovascular: Reports no additional cardiovascular complaints Respiratory: Respiratory: Reports no additional respiratory complaints Gastrointestinal: Gastrointestinal: Reports no additional gastrointestinal complaints Musculoskeletal: Musculoskeletal: Reports back pain, Reports arthralgias, Denies joint swelling and Denies muscle cramps Integumentary/Breasts: Skin/Breast: Reports system reviewed and no additional complaints, except as docu PMFSH Past Medical History Medical History Abnormal CT of the chest Anemia Anxiety Asthma Atrial fibrillation with rapid ventricular response Back pain Chest pain in adult CHF (congestive heart failure) Chronic obstructive pulmonary disease, unspecified Depression Diastolic dysfunction Dyslipidemia Edema of both legs Essential hypertension GI bleed Gout Hypothyroidism Hypoxemia Left rotator cuff tear Obstructive sleep apnea Orthostatic syncope PAF (paroxysmal atrial fibrillation) PUD (peptic ulcer disease) Shortness of breath Surgical History Surgical History History of bilateral knee replacement Hx of appendectomy Hx of cholecystectomy Hx of hysterectomy Family History Family History Mother Family history of cardiovascular disease, Onset Age: 37 Sister Family history of type 2 diabetes mellitus Mother Hypertension Social History Social History Smoking packs per day: 0.5 Smoking cigarettes per day: 10.0 Years smoked: 48 Smoking pack-years: 24.00 Smoking status: Former smoker Tobacco type: cigarettes an
--- NOTE | 2023-03-31 14:11 | PC.NURSE ---
Pt karly and lori, assisted to the wc, and placed at the waiting room waiting for transportation.
== END 2023-03-31 14:12 | disposition home or self-care (01) ==
PROVIDERS: Emergency Provider Emergency Medicine; PCP Family Medicine
DX: S79.912A Unspecified injury of left hip, initial encounter (principal); M54.9 Dorsalgia, unspecified; G89.29 Other chronic pain; I48.0 Paroxysmal atrial fibrillation; I50.9 Heart failure, unspecified; I11.0 Hypertensive heart disease with heart failure; J44.9 Chronic obstructive pulmonary disease, unspecified; E78.5 Hyperlipidemia, unspecified; E03.9 Hypothyroidism, unspecified; G47.33 Obstructive sleep apnea (adult) (pediatric); Z96.653 Presence of artificial knee joint, bilateral; Z87.891 Personal history of nicotine dependence; Z87.11 Personal history of peptic ulcer disease; Z90.49 Acquired absence of other specified parts of digestive tract; Z90.710 Acquired absence of both cervix and uterus; M16.12 Unilateral primary osteoarthritis, left hip; M47.816 Spondylosis without myelopathy or radiculopathy, lumbar region; W06.XXXA Fall from bed, initial encounter
CPT/HCPCS: 36415; 72100; 73502; 80048; 85025; 85610; 85730; 96374; 99284; J2270

== ENCOUNTER 2023-11-04 00:02 | Emergency (ER) | payer OTHER, SELFPAY ==
[2023-11-04 00:05] VITALS: BP 124/66; PULSE 110; RESP 20; TEMP 37.8; O2SAT 95
--- NOTE | 2023-11-04 00:22 | PC.NURSE ---
tech tried to put gown on pt. pt refused and stated she just wants to go home and drink her hot tea
--- NOTE | 2023-11-04 00:23 | ED.FEVER ---
HPI - Fever General Chief Complaint: Fever Stated Complaint: fever Time Seen by Provider: 11/04/23 00:14 Source: patient and EMS Mode of arrival: EMS Limitations: physical limitation History of Present Illness HPI Narrative: this is a 63-year-old female that presents via EMS after family called because the patient was feverish, although patient appears comfortable with no shortness of breath no chest pain no nausea vomiting or abdominal pain patient does have a history of CHF with diastolic dysfunction COPD and a chronic smoker. Patient with no dysuria no hematuria no flank pain. MD elicited complaint: fever Onset (ago): hour(s) Related Data Home Medications Medication Instructions Recorded Confirmed albuterol sulfate 2.5 mg/0.5 mL 2.5 mg inhalation Q20M 02/13/19 01/31/23 solution for nebulization allopurinol 100 mg tablet 100 mg PO DAILY 02/13/19 01/31/23 atorvastatin 20 mg tablet 20 mg PO DAILY 02/13/19 01/31/23 dicyclomine 10 mg capsule 10 mg PO TID 02/13/19 01/31/23 levothyroxine 112 mcg tablet 112 mcg PO DAILY 02/13/19 01/31/23 montelukast 10 mg tablet 10 mg PO HS 02/13/19 01/31/23 multivitamin 1 cap PO DAILY 02/13/19 01/31/23 omeprazole 40 mg capsule,delayed 40 mg PO DAILY 02/13/19 01/31/23 release paroxetine HCl 30 mg tablet 30 mg PO DAILY 02/13/19 01/31/23 valacyclovir 1 gram tablet 1,000 mg PO DAILY 02/13/19 01/31/23 (Valtrex) ferrous sulfate 324 mg (65 mg 324 mg PO BID 08/05/19 01/31/23 iron) tablet,delayed release prednisone 20 mg tablet 20 mg PO DAILY 10/30/22 01/31/23 oxycodone-acetaminophen 10 mg-325 1 tablet PO Q6H PRN Pain 11/02/22 01/31/23 mg tablet Allergies Allergy/AdvReac Type Severity Reaction Status Date / Time codeine Allergy Unknown Unknown Verified 03/31/23 10:06 Penicillins Allergy Unknown Unknown Verified 03/31/23 10:06 Sulfa (Sulfonamide Allergy Unknown Unknown Verified 03/31/23 10:06 Antibiotics) Sulfonamides Allergy Intermediate unknown Uncoded 03/31/23 10:06 Review of Systems Review of Systems: All systems reviewed & are unremarkable except as noted in HPI and below PMFSH Past Medical History Medical History Abnormal CT of the chest Anemia Anxiety Asthma Atrial fibrillation with rapid ventricular response Back pain Chest pain in adult CHF (congestive heart failure) Chronic obstructive pulmonary disease, unspecified Depression Diastolic dysfunction Dyslipidemia Edema of both legs Essential hypertension GI bleed Gout Hypothyroidism Hypoxemia Left rotator cuff tear Obstructive sleep apnea Orthostatic syncope PAF (paroxysmal atrial fibrillation) PUD (peptic ulcer disease) Shortness of breath Surgical History Surgical History History of bilateral knee replacement Hx of appendectomy Hx of cholecystectomy Hx of hysterectomy Family History Family History Mother Family history of cardiovascular disease, Onset Age: 37 Sister Family history of type 2 diabetes mellitus Mother Hypertension Social History Social History Smoking packs per day: 0.5 Smoking cigarettes per day: 10.0 Years smoked: 48 Smoking pack-years: 24.00 Smoking status: Former smoker Tobacco type: cigarettes and e-cigarettes/vaping Alcohol intake: former Substance use: former Substance use type: marijuana Other substance usage details: Not currently using, doesn't drink anymore Lack of Transportation: No Lack of Food: Often True Current Housing: I Have Housing Concerned About Future Housing: No Difficulty Paying Gas/Electric Bills: No Difficulty Paying for Meds: No Currently Unemployed: No Education: Grade School Difficulty w/ Childcare or Family Care: No Spiritual care concerns: No Exam Const: General: no
== END 2023-11-04 00:28 | disposition left against medical advice (07) ==
PROVIDERS: Emergency Provider Emergency Medicine; PCP Family Medicine
DX: R50.9 Fever, unspecified (principal); I11.0 Hypertensive heart disease with heart failure; I50.9 Heart failure, unspecified; E03.9 Hypothyroidism, unspecified; E78.5 Hyperlipidemia, unspecified; J44.9 Chronic obstructive pulmonary disease, unspecified; I48.91 Unspecified atrial fibrillation; Z87.891 Personal history of nicotine dependence
CPT/HCPCS: 99283